=== PATIENT | male | born 1950 | race Caucasian/White ===

== ENCOUNTER 2018-06-09 11:51 | Observation (INO) ==
--- NOTE | 2018-06-09 12:15 | Emergency Department Note ---
Disposition Clinical Impression: Dyspnea on exertion, Exertional chest pain Disposition: Admitted As Inpatient Condition: Good Forms: ED Satisfaction Letter Time of Disposition: 15:00 General Adult HPI - General Chief complaint: ED Chest Pain Stated complaint: CP Time Seen by Provider: 06/09/18 12:04 Source: patient, family Mode of arrival: ambulatory Limitations: no limitations - History of Present Illness HPI Narrative: This is a 67-year-old male with a significant history of coronary disease, with multiple cardiac catheterization since 2010 and a cardiac bypass here in 2013 and repeat bypass at [facility] in 2015, comes to the emergency department reporting episodes of chest pain with shortness of breath that have occurred on a daily basis for the last 14 days. He develops chest pain if he has minor exertion with coincident shortness of breath. Pain Scale: 4 - Related Data Home Medications Medication Instructions Recorded Confirmed Albuterol Sulfate [Proair Hfa] 2 puff IH Q4-6H PRN 10/04/15 04/08/17 Aspirin [Adult Low Dose Aspirin EC] 162 mg PO QAM 10/04/15 04/08/17 Fenofibrate [Lofibra] 160 mg PO QPM 10/04/15 04/08/17 Gabapentin [Neurontin] 300 mg PO BID 10/04/15 04/08/17 Hyoscyamine Sulfate 0.125 mg PO TID PRN 10/04/15 04/08/17 Insulin LISPRO [HumaLOG] 6 units SQ TIDWM 10/04/15 04/08/17 Metformin HCl [Glucophage] 1,000 mg PO BID 10/04/15 04/08/17 Metoprolol Tartrate [Lopressor] 50 mg PO BID 10/04/15 04/08/17 Multivitamin/Iron/Folic Acid 1 tab PO QAM 10/04/15 04/08/17 [Centrum Complete Multivit Tab] Nitroglycerin 0.4 mg SL AD PRN 10/04/15 04/08/17 Ondansetron HCl [Zofran] 8 mg PO BID PRN 10/04/15 04/08/17 Simvastatin [Zocor] 40 mg PO QPM 10/04/15 04/08/17 Vitamin B Complex 1 cap PO QAM 10/04/15 04/08/17 Dulaglutide [Trulicity] 1.5 mg SQ QWEEK 04/08/17 04/08/17 Insulin Glargine,Hum.rec.anlog 55 units SQ HS 04/08/17 04/08/17 [Sherine Velasquez] Allergies Allergy/AdvReac Type Severity Reaction Status Date / Time No Known Allergies Allergy Verified 04/15/15 16:50 All systems ED: reviewed and negative except as stated. Cardiovascular: Reports: chest pain, dyspnea on exertion Respiratory: Reports: dyspnea Past Medical History - Past Medical History Medical history: Reports: asthma, coronary artery disease, CVA, diabetes, hyperlipidemia, hypertension Surgical history: Reports: angioplasty/stent, coronary bypass (CABG) Psychiatric history: Reports: no psych history - Social History Smoking Status: Never smoker Smokeless Tobacco Status: No Alcohol use: Reports: none Drug use: Reports: none Physical Exam - General Limitations: no limitations General appearance: alert, in no apparent distress - Head Head exam: atraumatic, normocephalic, normal inspection - Eye Eye exam: Present: normal appearance, PERRL, EOMI - Chest Chest inspection: Present: normal inspection, symmetric chest wall rise - Respiratory Respiratory exam: Present: normal lung sounds bilaterally. Absent: respiratory distress, wheezes - Cardiovascular Cardiovascular exam: Present: regular rate, normal rhythm, normal heart sounds - Abdominal Exam Abdominal exam: Present: soft, Non-Tender. Absent: tenderness, distention, guarding, rebound, rigidity - Extremities Exam Extremities exam: Present: normal inspection, full ROM. Absent: tenderness, pedal edema - Neurological Exam Neurological exam: Present: alert, oriented X3 - Psychiatric Psychiatric exam: Present: normal affect, normal mood - Skin Skin exam: Present: warm, dry, intact, normal color Course Course Narrative: This is a 67-year-old male with symptoms concerning for angina or unstable angina. Vital Signs Temperature 97.6 F 06/09/18 11:59 Pulse Rate 71 06/09/18 11:59 Respiratory Rate 16 06/09/18 11:59 Blood Pressure 168/78 06/09/18 11:59 O2 Sat by Pulse Oximetry 99 06/09/18 11:59 Temperature 97.6 F 06/09/18 11:59 Pulse Rate 71 06/09/18 11:59 Respiratory Rate 16 06/09/18 14:06 Blood Pressure 168/78 06/09/18 11:59 O2 Sat by Pulse Oximetry 99 06/09/18 14:06 Oxygen Delivery Oxygen Delivery Room Air Medical Decision Making - MDM Narrative Medical decision making narrative: This is a 67-year-old male with symptoms concerning for unstable angina. I discussed his case with the on-call hospitalist, who accepted him for admission - Lab Data Lab results reviewed: Yes I reviewed the patient's lab results. Lab results narrative: CBC was unremarkable BMP was unremarkable Troponin was low Result diagrams: 06/09/18 12:40 06/09/18 12:40 Lab Results 06/09/18 06/09/18 Range/Units 12:40 12:40 WBC 7.9 (4.3-11.1) K/mcL RBC 4.87 (4.19-5.50) M/mcL Hgb 13.4 (12.9-16.9) g/dL Hct 42.4 (37.5-50.1) % MCV 87.1 (83.0-100.0) fL MCH 27.5 L (28.0-33.3) pg MCHC 31.6 (31.6-35.5) g/dL RDW 13.2 (11.5-14.5) % Plt Count 293 (140-400) K/mcL MPV 10.5 (9.4-12.4) fL Immature Gran % 0.3 (0-4) % Seg Neutrophils % 61.1 % Lymphocytes % 25.2 % Monocytes % 8.8 % Eosinophils % 3.8 % Basophils % 0.8 % Neutrophils # 4.8 (1.6-8.9) K/mcL Lymphocytes # 2.0 (0.6-4.6) K/mcL Monocytes # 0.7 (0.0-1.3) K/mcL Eosinophils # 0.3 (0.0-0.6) K/mcL Basophils # 0.1 (0.0-0.2) K/mcL Sodium 137 (136-145) mEq/L Potassium 4.6 (3.5-5.1) mEq/L Chloride 106 (98-107) mEq/L Carbon Dioxide 24 (23-29) mEq/L BUN 21 (8-23) mg/dL Creatinine 0.93 (0.70-1.30) mg/dL Est GFR ( Amer) > 60 (> 60) Est GFR (Non-Af Amer) > 60 (> 60) BUN/Creatinine Ratio 23 (6-26) Glucose 169 H (70-105) mg/dL Calculated Osmolality 291 (280-300) Calcium 10.0 (8.6-10.3) mg/dL Troponin I < 0.03 (< 0.04) ng/mL - Radiology Data Radiology results reviewed: Yes I reviewed the patient's radiology results. CXR was unremarkable - EKG Data EKG #1 EKG attestation: Yes I reviewed and interpreted this EKG. EKG results narrative: ECG shows sinus rhythm, 62 bpm, normal intervals, normal axis, normal ST and T waves Critical Care Time Critical Care Time: No
[2018-06-09 12:59] LABS: Basophils # 0.1 K/mcL (0.0-0.2); Basophils % 0.8 %; Eosinophils # 0.3 K/mcL (0.0-0.6); Eosinophils % 3.8 %; Hematocrit 42.4 % (37.5-50.1); Hemoglobin 13.4 g/dL (12.9-16.9); Immature Granulocytes % 0.3 % (0-4); Lymphocytes % 25.2 %; Mean Corpuscular HGB Conc 31.6 g/dL (31.6-35.5); Mean Corpuscular Hemoglobin 27.5 pg (28.0-33.3); Mean Corpuscular Volume 87.1 fL (83.0-100.0); Mean Platelet Volume 10.5 fL (9.4-12.4); Monocytes # 0.7 K/mcL (0.0-1.3); Monocytes % 8.8 %; Neutrophils # 4.8 K/mcL (1.6-8.9); Platelet Count 293 K/mcL (140-400); Red Blood Count 4.87 M/mcL (4.19-5.50); Red Cell Distribution Width 13.2 % (11.5-14.5); Segmented Neutrophils % 61.1 %
[2018-06-09 13:18] LABS: BUN/Creatinine Ratio 23 (6-26); Blood Urea Nitrogen 21 mg/dL (8-23); Carbon Dioxide 24 mEq/L (23-29); Chloride 106 mEq/L (98-107); Glucose 169 mg/dL (70-105); Osmolality,Calculated 291 (280-300); Potassium 4.6 mEq/L (3.5-5.1); Sodium 137 mEq/L (136-145); Troponin I < 0.03 ng/mL (< 0.04); eGFR For Non-African Americans > 60 (> 60)
[2018-06-09] MEDS ORDERED: Ipratropium/Albuterol Neb 3 ML IH ONE (13:27)
[2018-06-09] MEDS ORDERED: Hyoscyamine SL 0.125 MG TAB.SUBL PO PRN (16:42)
[2018-06-09] MEDS ORDERED: Nitroglycerin 0.4 MG TAB.SUBL SL PRN ×2 (16:42→17:04)
[2018-06-09] MEDS ORDERED: Dextrose Gel 15 GM/37.5 ML TUBE PO PRN ×2 (16:52)
[2018-06-09] MEDS ORDERED: *HR* Dextrose 50 % in Water (Syg) 50 ML SYRINGE IVP PRN (16:52)
[2018-06-09] MEDS ORDERED: D5% in Water 1,000 ML IVC PRN (16:52)
--- NOTE | 2018-06-09 17:00 | Internal Med History&Physical ---
Date of Encounter: 06/09/18 Time of Encounter: 16:54 Internal Medicine - H&P: HPI Chief complaint: chest pain Admitted From: Home Plans for Post Hospital Care: Home History of present illness: Mr. Alexander is a 67 year old male with a significant history of coronary disease, with multiple cardiac catheterization since 2010 and a cardiac bypass here in 2013 and repeat bypass at [facility] in 2016, hypertension, hy perlipidemia and DM, presented to the emergency department reporting episodes of chest pain with shortness of breath for 2 weeks. Chest pains, located to the left lower chest pressure-like 6 out of 10 no radiation. Associated was shortness of breasts, he denies diaphoresis no dizziness no palpation. 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 Allen. He denies fever or chills no productive cough. He denies abdominal pain nausea vomiting diarrhea. In the emergency room and he has negative troponin, EKG has no ST elevation or depression. We will admitted for chest pain workup, check troponin echocardiogram and a stress test Past Med Surg Social Fam HX - Past Medical History Medical history: asthma, coronary artery disease, CVA, diabetes, hyperlipidemia, hypertension Additional medical history: left side weakness Psychiatric history: no psych history - Past Surgical History Surgical History: angioplasty/stent, coronary bypass (CABG) Additional surgical history: CABGx2 - Social History Smoking Status: Never smoker Smokeless Tobacco Status: No Alcohol use: none Drug use: none - Family History Brother Adopted: No Living Status: Still Living Hx Family Cardiac Disorders: Yes (HEART DISEASE) Hx Family Respiratory Disorders: Yes (ASTHMA) Hx Family Cancer: No Hx Family GI Disorders: No Hx Family Endocrine Disorder: No (DIABETES) Hx Family Neuromuscular Disorders: No Hx Family Neurologic Disorders: No Hx Family HEENT Disorders: No Hx Family Autoimmune Disorders: No Sister Adopted: No Living Status: Still Living Hx Family Cardiac Disorders: No Hx Family Respiratory Disorders: No Hx Family Cancer: No Hx Family Endocrine Disorder: Yes (DIABETES) Hx Family Neuromuscular Disorders: No Hx Family Neurologic Disorders: No Hx Family HEENT Disorders: No Hx Family Autoimmune Disorders: No Mother Hx Family Cardiac Disorders: Yes (CARDIAC DISEASE.) Internal Medicine - H&P: Meds Albuterol Sulfate [Proair Hfa] 2 puff IH Q4-6H PRN 10/04/15 [History] Aspirin [Adult Low Dose Aspirin EC] 162 mg PO QAM 10/04/15 [History] Fenofibrate [Lofibra] 160 mg PO QPM 10/04/15 [History] Gabapentin [Neurontin] 300 mg PO BID 10/04/15 [History] Hyoscyamine Sulfate 0.125 mg PO TID PRN 10/04/15 [History] Insulin LISPRO [HumaLOG] 0 units SQ TIDWM 10/04/15 [History] Metformin HCl [Glucophage] 1,000 mg PO BID 10/04/15 [History] Metoprolol Tartrate [Lopressor] 50 mg PO BID 10/04/15 [History] Multivitamin/Iron/Folic Acid [Centrum Complete Multivit Tab] 1 tab PO QAM 10/04/15 [History] Nitroglycerin 0.4 mg SL AD PRN 10/04/15 [History] Ondansetron HCl [Zofran] 8 mg PO BID PRN 10/04/15 [History] Simvastatin [Zocor] 40 mg PO QPM 10/04/15 [History] Vitamin B Complex 1 cap PO QAM 10/04/15 [History] Dulaglutide [Trulicity] 1.5 mg SQ FR 04/08/17 [History] Insulin Degludec [Tresiba Flextouch U-200] 60 unit SQ QAM 06/09/18 [History] Allergy/AdvReac Type Severity Reaction Status Date / Time No Known Allergies Allergy Verified 04/15/15 16:50 All Systems PM: A 10-system review of systems was performed and is negative for pertinent findings except as documented above in the HPI. - Constitutional Vitals: Temp Pulse Resp BP Pulse Ox 98 F 75 16 167/95 97 06/09/18 16:39 06/09/18 16:39 06/09/18 16:39 06/09/18 16:39 06/09/18 16:39 General appearance: Present: A&O X 3, pleasant Exam: CONSTITUTIONAL: Patient appears as an age appropriate male well developed, in no acute distress. EYES Clear sclerae, bilateral pupils are equal, reactive to light and accommoda tion. Extraocular movements are intact RESPIRATORY: No accessory muscle use, bilateral clear to auscultation, no wheezing, no crackles/rales. CARDIOVASCULAR: Regular heart rate, normal S1 and S2, no murmurs GASTROINTESTINAL: bowel sounds present, soft, no tenderness. No hepatosplenomegaly. No bilateral CVA tenderness MUSCULOSKELETAL: Joints in normal range of motion, no clubbing, no edema, no cya nosis. Bilateral peripheral pulses 2+ LYMPHATIC no lymphadenopathy in neck, groin and axilla bilaterally, no thyromegaly. NEUROLOGIC: CN II to XII are grossly intact, no focal neurological deficit. Deep tendon reflexes 2+ bilaterally. Normal light touch sensation to upper and lower extremity PSYCHIATRIC: Oriented x3, with good insight, mood is euthymic. No hallucinations or delusions. SKIN: Skin warm and dry, no rashes, no open wound. Internal Med - H&P Results - Labs CBC & Chem 7: 06/09/18 12:40 06/09/18 12:40 Labs: Short CBC 06/09/18 Range/Units 12:40 WBC 7.9 (4.3-11.1) K/mcL Hgb 13.4 (12.9-16.9) g/dL Hct 42.4 (37.5-50.1) % Plt Count 293 (140-400) K/mcL Neutrophils # 4.8 (1.6-8.9) K/mcL BMP 06/09/18 12:40 Sodium 137 Potassium 4.6 Chloride 106 Carbon Dioxide 24 BUN 21 Creatinine 0.93 Glucose 169 H Calcium 10.0 Cardiac Enzymes 06/09/18 Range/Units 12:40 Troponin I < 0.03 (< 0.04) ng/mL - Impressions ITS Impressions Chest X-Ray 06/09/18 12:12 IMPRESSION: No focal airspace opacity or evidence of pleural effusion. D/ / Osmar Zeng / Osmar Zeng Interpreting Provider: Osmar Zeng - Assessment and plan (1) Chest pain Current Visit: No Status: Resolved Assessment and plan: Exertional, in setting of CAD, we will check troponin echocardiogram to stress test Qualifiers: Chest pain type: chest pain due to myocardial ischemia Qualified Code(s): I20.8 - Other forms of angina pectoris (2) CAD (coronary artery disease) Current Visit: Yes Status: Chronic Assessment and plan: Patient is is stated post of CABG 2 continue aspirin and statins Qualifiers: Coronary Disease-Associated Artery/Lesion type: bypass graft [place] vs. 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 Diabetes mellitus complication status: with neurologic complications Diabetes mellitus complication detail: with unspecified neuropathy Qualified Code(s): E11.40 - Type 2 diabetes mellitus with diabetic neuropathy, unspecified; Z79.4 - 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
[2018-06-09] MEDS ORDERED: Fenofibrate 54 MG TABLET PO SCH (18:00)
[2018-06-09] MEDS: Insulin LISPRO 300 UNITS/3 ML VIAL SQ SCH (18:48)
[2018-06-09] MEDS: Gabapentin 300 MG CAPSULE PO SCH (20:42)
[2018-06-09] MEDS ORDERED: Insulin LISPRO 300 UNITS/3 ML VIAL SQ SCH (21:00)
[2018-06-10 00:49] LABS: Basophils # 0.1 K/mcL (0.0-0.2); Basophils % 0.8 %; Eosinophils # 0.3 K/mcL (0.0-0.6); Eosinophils % 4.2 %; Hematocrit 41.1 % (37.5-50.1); Hemoglobin 13.4 g/dL (12.9-16.9); Immature Granulocytes % 0.4 % (0-4); Lymphocytes # 2.3 K/mcL (0.6-4.6); Lymphocytes % 31.9 %; Mean Corpuscular HGB Conc 32.6 g/dL (31.6-35.5); Mean Corpuscular Hemoglobin 28.2 pg (28.0-33.3); Mean Corpuscular Volume 86.3 fL (83.0-100.0); Mean Platelet Volume 10.7 fL (9.4-12.4); Monocytes # 0.6 K/mcL (0.0-1.3); Monocytes % 8.6 %; Platelet Count 279 K/mcL (140-400); Red Blood Count 4.76 M/mcL (4.19-5.50); Red Cell Distribution Width 13.2 % (11.5-14.5); Segmented Neutrophils % 54.1 %
[2018-06-10 00:57] LABS: INR 1.1; Prothrombin Time 11.9 Seconds (9.4-12.1)
[2018-06-10 01:10] LABS: Alanine Aminotransferase 36 Units/L (7-52); Albumin 4.2 g/dL (3.5-5.7); Albumin/Globulin Ratio 1.7 (1.1-2.2); Alkaline Phosphatase 33 Units/L (34-104); Aspartate Amino Transferase 26 Units/L (13-39); BUN/Creatinine Ratio 19 (6-26); Bilirubin,Total 0.4 mg/dL (0.3-1.0); Blood Urea Nitrogen 19 mg/dL (8-23); Calcium 9.5 mg/dL (8.6-10.3); Carbon Dioxide 24 mEq/L (23-29); Chloride 106 mEq/L (98-107); Globulin 2.5 g/dL (2.4-3.5); Glucose 161 mg/dL (70-105); Magnesium 1.7 mg/dL (1.6-2.6); Osmolality,Calculated 290 (280-300); Sodium 137 mEq/L (136-145); Total Protein 6.7 g/dL (6.4-8.9); eGFR For Non-African Americans > 60 (> 60)
[2018-06-10] MEDS ORDERED: Regadenoson 0.4 MG/5 ML SYRINGE IVP ONE (06:11)
--- NOTE | 2018-06-10 06:22 | Electrocardiograph Report ---
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
[2018-06-10] MEDS ORDERED: Perflutren Lipid Microsphere 1.3 ML in 0.9 % Sodium Chloride 8.7 ML IVP ONE (08:33)
[2018-06-10] MEDS ORDERED: Aspirin Enteric Coated 81 MG Tablet PO SCH (09:00)
[2018-06-10] MEDS ORDERED: INSULIN DEGLUDEC 60 UNIT SQ SCH (09:00)
[2018-06-10] MEDS ORDERED: Aspirin 81 MG TAB.CHEW PO SCH (09:00)
[2018-06-10] MEDS: Insulin LISPRO 300 UNITS/3 ML VIAL SQ SCH ×4 (09:23→11:27)
[2018-06-10] MEDS: Gabapentin 300 MG CAPSULE PO SCH (09:52)
[2018-06-10] MEDS ORDERED: Ondansetron 4 MG/2 ML VIAL IVP PRN (10:02)
[2018-06-10] MEDS ORDERED: Ondansetron 4 MG/2 ML VIAL IVP SCH (12:00)
--- NOTE | 2018-06-10 13:02 | Cardiology Consult Note ---
<Vijaya Tolliver - Last Filed: 06/10/18 14:33> Date of Encounter: 06/10/18 Time of Encounter: 12:55 Assessment and Plan (1) Chest pain Status: Chronic - Negative troponin x 3 - EKG shows 0.5mm ST elevation in II, III, aVF - pt denies further CP at present - Pt had normal LHC 03/2017 which showed 3/3 patent bypass grafts - stress test shows gated EF 67% and is negative or ischemia or infarct - echo shows LVEF 55-60% with normal LV size and function without significant valvular disease - pt already on baby ASA, 50mg BID metoprolol, 40mg Simvastatin, SL NG - r ecommend continuation of these therapies - Recommend adding 15mg Imdur to his current regimen for symptomatic relief and better HTN control - No further inpatient recommendations - followup outpt with Dr Marisol Bey Qualifiers: Chest pain type: chest pain due to myocardial ischemia Qualified Code(s): I20.8 - Other forms of angina pectoris Discussion w patient/family: The assessment and plan as outlined above was discussed with the patient and/or family members who expressed understanding and agreement. All questions were answered. Thank you for involving us in the care of your patient. Please call with any questions. History of Present Illness Consult date: 06/10/18 Requesting physician: Purvi Nicholas Consult reason: Cp, Pt of Dr Elsa Bey Chief complaint: CP History of present illness: Mr. Alexander is a 67 year old male with PMHx CAD, HTN, CABG ins 2013 & 2016, HLPD that presented to ED with 2 weeks of CP and SOB. Pt underwent echo on 06/10/18 which showed LVEF 55-60%, normal LV size & function, and no significant valvular disease. Pt also underwent stress test 06/10/18 which showed gated EF 67% and was negative for ischemia or infarct. Pt and family requested cardiac consultation because pt has previously had negative stress and echo and then had to have LHC. According to records, pt last underwent LHC in 03/2017 and was found to have 3/3 patent bypass grafts at that time. Pt describes his chest pain as left lateral in position, without radiation, described as sometimes sharp, sometimes pressure, lasts for a variable amount of time but could be as long as 20 minutes, nothing makes worse, NG makes better, happens during periods of rest/activity, seems to happen randomly. Is 5/10 in severity. Pt denies associated symptoms of diaphoresis, nausea, vomiting, syncope. Pt endorses some right hand numbness/tingling and lightheadedness/dizziness that happens occasionally but not always. Pt is reluctant to take NG because it gives him a headache and reports taking it 2-3x over the last 2 weeks. Pt already on 2 baby ASA, 50mg BID metoprolol, and 40mg Simvastatin with NG prn. Past Med Surg Social Fam HX - Past Medical History Medical history: asthma, coronary artery disease, CVA, diabetes, hyperlipidemia, hypertension Additional medical history: left side weakness Psychiatric history: no psych history - Past Surgical History Surgical History: angioplasty/stent, coronary bypass (CABG) Additional surgical history: CABGx2 - Social History Smoking Status: Never smoker Smokeless Tobacco Status: No Alcohol use: none Drug use: none - Family History Brother Adopted: No Living Status: Still Living Hx Family Cardiac Disorders: Yes (HEART DISEASE) Hx Family Respiratory Disorders: Yes (ASTHMA) Hx Family Cancer: No Hx Family GI Disorders: No Hx Family Endocrine Disorder: No (DIABETES) Hx Family Neuromuscular Disorders: No Hx Family Neurologic Disorders: No Hx Family HEENT Disorders: No Hx Family Autoimmune Disorders: No Mother Hx Family Cardiac Disorders: Yes (CARDIAC DISEASE.) Sister Adopted: No Living Status: Still Living Hx Family Cardiac Disorders: No Hx Family Respiratory Disorders: No Hx Family Cancer: No Hx Family Endocrine Disorder: Yes (DIABETES) Hx Family Neuromuscular Disorders: No Hx Family Neurologic Disorders: No Hx Family HEENT Disorders: No Hx Family Autoimmune Disorders: No Medications and Allergies RX: Albuterol Sulfate [Proair Hfa] 2 puff IH Q4-6H PRN 10/04/15 [History] RX: Aspirin [Adult Low Dose Aspirin EC] 162 mg PO QAM 10/04/15 [History] RX: Fenofibrate [Lofibra] 160 mg PO QPM 10/04/15 [History] RX: Gabapentin [Neurontin] 300 mg PO BID 10/04/15 [History] RX: Hyoscyamine Sulfate 0.125 mg PO TID PRN 10/04/15 [History] RX: Insulin LISPRO [HumaLOG] 0 units SQ TIDWM 10/04/15 [History] RX: Metformin HCl [Glucophage] 1,000 mg PO BID 10/04/15 [History] RX: Metoprolol Tartrate [Lopressor] 50 mg PO BID 10/04/15 [History] RX: Multivitamin/Iron/Folic Acid [Centrum Complete Multivit Tab] 1 tab PO QAM 10/04/15 [History] RX: Nitroglycerin 0.4 mg SL AD PRN 10/04/15 [History] RX: Ondansetron HCl [Zofran] 8 mg PO BID PRN 10/04/15 [History] RX: Simvastatin [Zocor] 40 mg PO QPM 10/04/15 [History] RX: Vitamin B Complex 1 cap PO QAM 10/04/15 [History] RX: Dulaglutide [Trulicity] 1.5 mg SQ FR 04/08/17 [History] RX: Insulin Degludec [Tresiba Flextouch U-200] 60 unit SQ QAM 06/09/18 [History] RX: Isosorbide MONOnitrate (24 HR) [Imdur] 15 mg PO DAILY 15 Days #15 tab.er.24h 06/10/18 [Rx] Allergy/AdvReac Type Severity Reaction Status Date / Time No Known Allergies Allergy Verified 04/15/15 16:50 All Systems Review: The remainder of the systems were reviewed and are negative - Constitutional Constitutional: no chills, no fever(s) - Cardiovascular Cardiovascular: chest pain at rest, chest pain with exertion, lightheadedness, no diaphoresis, no dyspnea at rest, no dyspnea on exertion, no radiating jaw, neck or arm pain, no leg edema, no syncope - Respiratory Respiratory: cough, dyspnea, no hemoptysis, no wheezing - Gastrointestinal Gastrointestinal: diarrhea, no abdominal pain, no constipation, no melena, no nausea - Genitourinary Genitourinary: no dysuria, no hematuria - Neurological Neurological: dizziness, numbness, tingling, no syncope Physical Examination Vital Signs, Last 4 Hours Temp Pulse Resp BP Pulse Ox 06/10/18 11:16 97.4 F L 58 18 106/47 97 06/10/18 10:02 97.6 F 60 16 187/82 97 General: Conversant, No Apparent Distress HEENT: Atraumatic, Normocephaly, Mucus Membranes Moist Neck: No JVD, Normal carotid pulses Cardiac: Reg Rate and Rhythm, Normal S1 and S2, No Murmur Lungs: Normal Breath Sounds, No Wheeze, Rales, Rhonchi Neuro: Alert and responsive, No focal deficits noted Abdomen: Soft, Non-Tender Skin: No rashes noted on visualized skin Musculoskeletal: No Chest Wall Tenderness Extremities: No Clubbing, No Cyanosis, No Edema, Normal Pulses Results 06/10/18 00:34 06/10/18 00:34 Lab Results 06/09/18 06/09/18 06/09/18 12:40 12:40 19:06 WBC 7.9 Hgb 13.4 Hct 42.4 Plt Count 293 INR Sodium 137 Potassium 4.6 Chloride 106 Carbon Dioxide 24 BUN 21 Creatinine 0.93 Glucose 169 H Calcium 10.0 Magnesium Total Bilirubin AST ALT Alkaline Phosphatase Troponin I < 0.03 < 0.03 06/10/18 06/10/18 06/10/18 00:34 00:34 00:34 WBC 7.3 Hgb 13.4 Hct 41.1 Plt Count 279 INR 1.1 Sodium Potassium Chloride Carbon Dioxide BUN Creatinine Glucose Calcium Magnesium Total Bilirubin AST ALT Alkaline Phosphatase Troponin I < 0.03 06/10/18 00:34 WBC Hgb Hct Plt Count INR Sodium 137 Potassium 4.0 Chloride 106 Carbon Dioxide 24 BUN 19 Creatinine 0.99 Glucose 161 H Calcium 9.5 Magnesium 1.7 Total Bilirubin 0.4 AST 26 ALT 36 Alkaline Phosphatase 33 L Troponin I - Imaging and Cardiology Stress Test: report reviewed Echo: report reviewed Consult Discharge Plan - Plan Instructions: Chest Pain (DC), Acute Kidney Injury (DC), Dyspnea (GEN), Hypomagnesemia (DC) Referrals: Bettie Renae CNP [Partnered Physician] - 06/17/18 2:00 pm Prescriptions: RX: Isosorbide MONOnitrate (24 HR) [Imdur] 15 mg PO DAILY 15 Days #15 tab.er.24h <Noemy Garcia - Last Filed: 06/10/18 18:57> Date of Encounter: 06/10/18 - Attending Attestation I discussed the plan of care with the Resident Physician. I agree with the treatment plan as described. Exam was not performed. Mr. Alexander presented with chest pain. Cardiology consulted at patient request. Troponins negative. No acute ECG findings. Stress testing negative for ischemia or infarct. [facility] 04/15 3/ patent bypass grafts. Attempted to discuss findings with patient in the afternoon after stress test was completed. Patient and angry, argumentative because he did not receive a meal. He told me "I won't pay your bill when I get it" and proceeded to tell me to "get out and not come back". Exam therefore was not performed. We started low dose Imdur on this patient, 15mg daily. Blood pressures markedly elevated on admission. Recommend continuing antiplatelet agent, statin, BB. He can follow with his primary [place] consultant as outpatient. Assessment and Plan Discussion w patient/family: The assessment and plan as outlined above was discussed with the patient and/or family members who expressed understanding and agreement. All questions were answered. Thank you for involving us in the care of your patient. Please call with any questions. History of Present Illness History of present illness: Mr. Alexander is a 67 year old male All Systems Review: The remainder of the systems were reviewed and are negative Physical Examination Vital Signs, Last 4 Hours Temp Pulse Resp BP Pulse Ox 06/10/18 15:33 97.9 F 68 16 181/80 98 Results 06/10/18 00:34 06/10/18 00:34 Lab Results 06/09/18 06/10/18 06/10/18 19:06 00:34 00:34 WBC 7.3 Hgb 13.4 Hct 41.1 Plt Count 279 INR Sodium Potassium Chloride Carbon Dioxide BUN Creatinine Glucose Calcium Magnesium Total Bilirubin AST ALT Alkaline Phosphatase Troponin I < 0.03 < 0.03 06/10/18 06/10/18 00:34 00:34 WBC Hgb Hct Plt Count INR 1.1 Sodium 137 Potassium 4.0 Chloride 106 Carbon Dioxide 24 BUN 19 Creatinine 0.99 Glucose 161 H Calcium 9.5 Magnesium 1.7 Total Bilirubin 0.4 AST 26 ALT 36 Alkaline Phosphatase 33 L Troponin I
[2018-06-10] MEDS ORDERED: Isosorbide MONOnitrate (24 HR) 30 MG TAB.ER.24H PO SCH (14:45)
--- NOTE | 2018-06-10 15:15 | Discharge Summary ---
- NOTES TO OUTPATIENT PROVIDER Notes to Outpatient Provider: basic d/c f/u Orders not resulted at time of discharge: Pending orders 06/09/18 17:06 NM jordin perf SPECT multi [NM] Routine Date of Encounter: 06/10/18 Time of Encounter: 15:13 - Discharge Diagnosis (1) Chest pain Priority: Primary Status: Chronic Qualifiers: Chest pain type: chest pain due to myocardial ischemia Qualified Code(s): I20.8 - Other forms of angina pectoris (2) CAD (coronary artery disease) Priority: Secondary Status: Chronic Qualifiers: Coronary Disease-Associated Artery/Lesion type: bypass graft [place] vs. transplanted heart: [place] heart Associated angina: with unstable angina Qualified Code(s): I25.700 - Atherosclerosis of coronary artery bypass graft(s), unspecified, with unstable angina pectoris (3) Diabetes Priority: Secondary Status: Chronic Qualifiers: Diabetes mellitus type: type 2 Diabetes mellitus residential insulin use: with residential use Diabetes mellitus complication status: with neurologic complications Diabetes mellitus complication detail: with unspecified neuropathy Qualified Code(s): E11.40 - Type 2 diabetes mellitus with diabetic neuropathy, unspecified; Z79.4 - manager long term care (current) use of insulin (4) HTN (hypertension) Priority: Secondary Status: Chronic Qualifiers: Hypertension type: essential hypertension Qualified Code(s): I10 - Essential (primary) hypertension Hospital course: Mr. Alexander is a 67 year old male with history of significant CAD and multiple cardiac catheterizations since 2010 as well as bypass grafts in 2014 in 2016. He presents to [facility] with 6 out of 10 left lower chest pain/pressure with associated shortness of breath, palpitations and diaphoresis. EKG compared to prior was without any changes concerning for ischemia, troponins negative 3. Stress test completed this morning and found to be without ischemia. He is continued at 3/10 chest pressure in the same location with the same associated symptoms. Cardiology was consulted and recommend adding 50 mg Imdur to his daily regimen for symptom relief and better HTN control. No further inpatient recommendations at this time. He is have follow up outpatient with Dr. Marisol Bey. He has been instructed to continue aspirin, beta carlos, simvastatin. Additionally, he is instructed to return to the ED should his symptoms persist and/or worsen. Discharge discussed with: patient, nurse - Time Spent with Patient Total time spent providing and/or coordinating discharge services: Less than 30 minutes - Discharge Medications Prescriptions: Isosorbide MONOnitrate (24 HR) [Imdur] 15 mg PO DAILY 15 Days #15 tab.er.24h Home Medications: Albuterol Sulfate [Proair Hfa] 2 puff IH Q4-6H PRN 10/04/15 [History] Aspirin [Adult Low Dose Aspirin EC] 162 mg PO QAM 10/04/15 [History] Fenofibrate [Lofibra] 160 mg PO QPM 10/04/15 [History] Gabapentin [Neurontin] 300 mg PO BID 10/04/15 [History] Hyoscyamine Sulfate 0.125 mg PO TID PRN 10/04/15 [History] Insulin LISPRO [HumaLOG] 0 units SQ TIDWM 10/04/15 [History] Metformin HCl [Glucophage] 1,000 mg PO BID 10/04/15 [History] Metoprolol Tartrate [Lopressor] 50 mg PO BID 10/04/15 [History] Multivitamin/Iron/Folic Acid [Centrum Complete Multivit Tab] 1 tab PO QAM 10/04/15 [History] Nitroglycerin 0.4 mg SL AD PRN 10/04/15 [History] Ondansetron HCl [Zofran] 8 mg PO BID PRN 10/04/15 [History] Simvastatin [Zocor] 40 mg PO QPM 10/04/15 [History] Vitamin B Complex 1 cap PO QAM 10/04/15 [History] Dulaglutide [Trulicity] 1.5 mg SQ FR 04/08/17 [History] Insulin Degludec [Tresiba Flextouch U-200] 60 unit SQ QAM 06/09/18 [History] Isosorbide MONOnitrate (24 HR) [Imdur] 15 mg PO DAILY 15 Days #15 tab.er.24h 06/10/18 [Rx] Allergies/Adverse Reactions: Allergy/AdvReac Type Severity Reaction Status Date / Time No Known Allergies Allergy Verified 04/15/15 16:50 Date of admission: 06/09/18 15:06 Primary care physician: Anais Almonte Consults: 06/09/18 17:04 Consult to Cardiology [CONS] Routine Comment: Consulting Provider: Cardiology [place] Reason for Consult: chest pain, amenatnet is Dr wood's patent Call Completed: No Discharging clinician: Luc Catherine Anticipated date of discharge: 06/10/18 - Constitutional Vitals: Temp Pulse Resp BP Pulse Ox 97.4 F L 58 18 106/47 97 06/10/18 11:16 06/10/18 11:16 06/10/18 11:16 06/10/18 11:16 06/10/18 11:16 General appearance: Present: A&O X 3, pleasant Exam: CONSTITUTIONAL: Patient appears as an age appropriate male well developed, in no acute distress. EYES Clear sclerae, bilateral pupils are equal, reactive to light and accommodation. Extraocular movements are intact RESPIRATORY: No accessory muscle use, bilateral clear to auscultation, no wheezing, no crackles/rales. CARDIOVASCULAR: Regular heart rate, normal S1 and S2, no murmurs. rubs or gallops GASTROINTESTINAL: bowel sounds present, soft, no tenderness. No hepatosplenomegaly. No bilateral CVA tenderness MUSCULOSKELETAL: Joints in normal range of motion, no clubbing, no edema, no cyanosis. Bilateral peripheral pulses 2+ LYMPHATIC no lymphadenopathy in neck, groin and axilla bilaterally, no thyromegaly. NEUROLOGIC: CN II to XII are grossly intact, no focal neurological deficit. Deep tendon reflexes 2+ bilaterally. Normal light touch sensation to upper and lower extremity PSYCHIATRIC: Oriented x3, with good insight, mood is euthymic. No hallucinations or delusions. SKIN: Skin warm and dry, no rashes, no open wound. - Patient Status Disposition: Home, Self-Care Condition: Good Functional capacity at discharge: independent ambulation Overall status at discharge: patient is progressing back to baseline - Discharge Instructions Instructions: Chest Pain (DC) Follow Up With: Bettie Renae CNP [Partnered Physician] - 06/17/18 2:00 pm - Diet and Activity Activity: increase activity as tolerated, resume usual activities as tolerated Diet: diabetic diet, low fat, low cholesterol, low salt diet
[2018-06-10 15:34] VITALS: BP 181/80
--- NOTE | 2018-06-11 11:39 | Electrocardiograph Report ---
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
[2018-06-12] MEDS ORDERED: (Dulaglutide [Trulicity] 1.5 MG) SQ SCH (16:42)
== END 2018-06-10 16:05 | disposition home or self-care (01) ==
LOC: 3BNU 11:51 → EMEROOARM 11:51 → 3BNU 16:10
PROVIDERS: ADMIT Internal Medicine; ATTEND Internal Medicine

== ENCOUNTER 2019-02-24 15:34 | Observation (INO) ==
[2019-02-24] MEDS ORDERED: Aspirin 81 MG TAB.CHEW PO ONE (15:39)
[2019-02-24] MEDS ORDERED: Nitroglycerin 0.4 MG TAB.SUBL SL PRN (15:39)
--- NOTE | 2019-02-24 15:49 | Emergency Department Note ---
Disposition Clinical Impression: Chest pain Qualifiers: Chest pain type: unspecified Qualified Code(s): R07.9 - Chest pain, unspecified Disposition: Admitted As Inpatient Condition: Good Referrals: Marla Lopes DO [Primary Care Provider] - Time of Disposition: 17:11 Chest Pain HPI - General Stated Complaint: chest pain Time Seen by Provider: 02/24/19 15:38 Source: patient, family Mode of arrival: other Limitations: no limitations Vital Signs Reviewed: Yes Nursing Notes Reviewed: Yes - History of Present Illness HPI Narrative: 68-year-old male with a past medical history of CAD that was at his private investigator surveillance's office this afternoon, Dr. Marisol Bey, because he had been having chest pain for the last month which got worse yesterday. Patient describes his pain as left-sided with occasional radiation up into his proximal chest, associated symptoms include nausea, lightheadedness, blurry vision. Patient states he is on a long-acting nitroglycerin as well as when necessary nitroglycerin, last took his dose last night, reports no relief with this. While patient was in his private investigator surveillance's office they sent him down here for further testing and to be admitted. Patient states that his pain can come on when he is doing nothing, states that his pain came on while he was seated. Patient reports 2 prior open-heart surgeries. - Related Data Home Medications Medication Instructions Recorded Confirmed Albuterol Sulfate [Proair Hfa] 2 puff IH Q4-6H PRN 10/04/15 06/09/18 Aspirin [Adult Low Dose Aspirin EC] 162 mg PO QAM 10/04/15 06/09/18 Fenofibrate [Lofibra] 160 mg PO QPM 10/04/15 06/09/18 Gabapentin [Neurontin] 300 mg PO BID 10/04/15 06/09/18 Hyoscyamine Sulfate 0.125 mg PO TID PRN 10/04/15 06/09/18 Insulin LISPRO [HumaLOG] 0 units SQ TIDWM 10/04/15 06/09/18 Metformin HCl [Glucophage] 1,000 mg PO BID 10/04/15 06/09/18 Metoprolol Tartrate [Lopressor] 50 mg PO BID 10/04/15 06/09/18 Multivitamin/Iron/Folic Acid 1 tab PO QAM 10/04/15 06/09/18 [Centrum Complete Multivit Tab] Nitroglycerin 0.4 mg SL AD PRN 10/04/15 06/09/18 Ondansetron HCl [Zofran] 8 mg PO BID PRN 10/04/15 06/09/18 Simvastatin [Zocor] 40 mg PO QPM 10/04/15 06/09/18 Vitamin B Complex 1 cap PO QAM 10/04/15 06/09/18 Dulaglutide [Trulicity] 1.5 mg SQ FR 04/08/17 06/09/18 Insulin Degludec [Tresiba 60 unit SQ QAM 06/09/18 06/09/18 Flextouch U-200] Allergies Allergy/AdvReac Type Severity Reaction Status Date / Time No Known Allergies Allergy Verified 07/29/18 15:07 Review of Systems: In addition to that documented in the HPI above, the additional ROS was obtained: Constitutional: Denies fevers or chills Eyes: Reports blurry vision ENMT: Denies sore throat CV: Reports chest pain Resp: Reports SOB with CP GI: Denies vomiting Reports chronic diarrhea : Denies painful urination MSK: Denies recent trauma Skin: Denies new rashes Neuro: Denies new numbness or tingling or weakness Reports occasional num bness/tingling in hands/feet that is chronic in nature Chest Pain PMH - Past Medical History Medical history: Reports: diabetes, hyperlipidemia, hypertension, asthma, CVA, coronary artery disease Surgical history: Reports: coronary bypass (CABG), angioplasty/stent Psychiatric history: Reports: no psych history - Social History Smoking Status: Never smoker Alcohol use: Reports: none Drug use: Reports: none Physical Exam General: A&O x 3. No acute distress. Well developed, well nourished. Head: atraumatic, normocephalic. ENT: No conjunctival injection, no scleral icterus. PERRLA. EOMI. Oropharynx non- erythematous. mucous membranes moist. Neuro: No focal deficits, no speech deficit, no facial droop, mentating well. BUE/BLE Str 5/5. Pulm: Lungs CTAB A/P. No wheezes, rales, ronchi. Cardio: RRR no m/r/g. Chest not tender to palpation. Abd: Soft, non-distended. Normoactive bowel sounds. Non-tender to palpation. No guarding. Non rigid. Extremities: Radial pulses 2+ jessenia, dorsalis pedis/posterior tibialis 2+ jessenia. No LE edema. No cyanosis, clubbing. Skin: warm, dry, intact. No rashes. Psych: Appropriate mood and affect. Answers questions appropriately. Cooperative with exam. Course - Consultations Consultation #1: Spoke with Dr. Callejas who states that the pt should be started on nitro and heparin drips. If the nitro drip does not relieve his chest pain entirely, he would like repeat EKG to ensure there are no dynamic changes. He also states the pt should be NPO after midnight. Will place orders. Time: 17:09 Vital Signs Temperature 98 F 02/24/19 15:52 Pulse Rate 63 02/24/19 15:52 Respiratory Rate 16 02/24/19 15:52 Blood Pressure 144/77 02/24/19 15:52 O2 Sat by Pulse Oximetry 98 02/24/19 15:52 Temperature 98 F 02/24/19 15:52 Pulse Rate 64 02/24/19 15:59 Respiratory Rate 16 02/24/19 15:59 Blood Pressure 121/75 02/24/19 15:59 O2 Sat by Pulse Oximetry 98 02/24/19 15:59 Oxygen Delivery Oxygen Delivery Room Air Chest Pain - MDM Narrative Medical decision making narrative: 1605: 68M with Pmhx of two previous CABG that was at private investigator surveillance office this afternoon and they recommended he come here for workup and admission. Dr Marisol Bey reports wanting to cath him in the AM. Will obtain pre-op labs and consult Dr. Bey for further instructions, and admit to hospitalist. 1710: Pt continued to have 5/10 chest pain but denies needing anything for this. However, Dr. Callejas, [employer] Operator, who was consulted states that the pt should receive a nitro drip to relieve his chest pain to a zero. Pt was admitted to hospitalist, Dr. Sutherland, who agreed to accept the pt to his care. Pt remained stable while in the department. Results of the workup including any imaging and/or labwork was shared with the patient at bedside. Patient was given an opportunity to ask questions at bedside and all of their concerns were addressed. Patient verbalized understanding and agreement with plan of care. Pt remained stable while in the department. - Medical Records Medical records reviewed: Yes I reviewed the patient's medical records. - Lab Data Lab results reviewed: Yes I reviewed the patient's lab results. Result diagrams: 02/24/19 15:54 02/24/19 15:54 Lab Results 02/24/19 02/24/19 02/24/19 Range/Units 15:54 15:54 15:54 WBC 7.6 (4.3-11.1) K/mcL RBC 4.52 (4.19-5.50) M/mcL Hgb 12.9 (12.9-16.9) g/dL Hct 39.9 (37.5-50.1) % MCV 88.3 (83.0-100.0) fL MCH 28.5 (28.0-33.3) pg MCHC 32.3 (31.6-35.5) g/dL RDW 13.5 (11.5-14.5) % Plt Count 261 (140-400) K/mcL MPV 10.3 (9.4-12.4) fL Immature Gran % 0.3 (0-4) % Seg Neutrophils % 57.3 % Lymphocytes % 27.4 % Monocytes % 8.8 % Eosinophils % 5.1 % Basophils % 1.1 % Neutrophils # 4.3 (1.6-8.9) K/mcL Lymphocytes # 2.1 (0.6-4.6) K/mcL Monocytes # 0.7 (0.0-1.3) K/mcL Eosinophils # 0.4 (0.0-0.6) K/mcL Basophils # 0.1 (0.0-0.2) K/mcL PT 11.5 (9.4-12.1) Seconds INR 1.0 APTT 36.5 H (26.0-36.0) Seconds Sodium 141 (136-145) mEq/L Potassium 4.7 (3.5-5.1) mEq/L Chloride 107 (98-107) mEq/L Carbon Dioxide 24 (23-29) mEq/L BUN 20 (8-23) mg/dL Creatinine 1.19 (0.70-1.30) mg/dL Est GFR ( Amer) > 60 (> 60) Est GFR (Non-Af Amer) > 60 (> 60) BUN/Creatinine Ratio 17 (6-26) Glucose 140 H (70-105) mg/dL Calculated Osmolality 297 (280-300) Calcium 9.6 (8.6-10.3) mg/dL Troponin I < 0.03 (< 0.04) ng/mL Urine Color (Yellow) Urine Clarity (Clear) Urine pH (5.0-8.0) pH Units Ur Specific [place] (1.010-1.025) Urine Protein (Neg-Trace) mg/dL Urine Glucose (UA) (Normal) mg/dL Urine Ketones (Negative) mg/dL Urine Blood (Negative) Urine Nitrite (Negative) Urine Bilirubin (Negative) Urine Urobilinogen (Normal) mg/dL Ur Leukocyte Esterase (Negative) Urine Microscopic RBC (0-3) per hpf Urine Microscopic WBC (0-3) per hpf Ur Squamous Epith Cells (None-Few) per lpf Urine Bacteria (None-Few) per hpf Hyaline Casts (None-Few) per lpf Ur Culture Indicated? (NO) 02/24/19 Range/Units 16:17 WBC (4.3-11.1) K/mcL RBC (4.19-5.50) M/mcL Hgb (12.9-16.9) g/dL Hct (37.5-50.1) % MCV (83.0-100.0) fL MCH (28.0-33.3) pg MCHC (31.6-35.5) g/dL RDW (11.5-14.5) % Plt Count (140-400) K/mcL MPV (9.4-12.4) fL Immature Gran % (0-4) % Seg Neutrophils % % Lymphocytes % % Monocytes % % Eosinophils % % Basophils % % Neutrophils # (1.6-8.9) K/mcL Lymphocytes # (0.6-4.6) K/mcL Monocytes # (0.0-1.3) K/mcL Eosinophils # (0.0-0.6) K/mcL Basophils # (0.0-0.2) K/mcL PT (9.4-12.1) Seconds INR APTT (26.0-36.0) Seconds Sodium (136-145) mEq/L Potassium (3.5-5.1) mEq/L Chloride (98-107) mEq/L Carbon Dioxide (23-29) mEq/L BUN (8-23) mg/dL Creatinine (0.70-1.30) mg/dL Est GFR ( Amer) (> 60) Est GFR (Non-Af Amer) (> 60) BUN/Creatinine Ratio (6-26) Glucose (70-105) mg/dL Calculated Osmolality (280-300) Calcium (8.6-10.3) mg/dL Troponin I (< 0.04) ng/mL Urine Color Yellow (Yellow) Urine Clarity Clear (Clear) Urine pH 5.5 (5.0-8.0) pH Units Ur Specific [place] 1.021 (1.010-1.025) Urine Protein 100 H (Neg-Trace) mg/dL Urine Glucose (UA) Normal (Normal) mg/dL Urine Ketones Negative (Negative) mg/dL Urine Blood Negative (Negative) Urine Nitrite Negative (Negative) Urine Bilirubin Negative (Negative) Urine Urobilinogen Normal (Normal) mg/dL Ur Leukocyte Esterase Negative (Negative) Urine Microscopic RBC 0-3 (0-3) per hpf Urine Microscopic WBC 0-3 (0-3) per hpf Ur Squamous Epith Cells None Seen (None-Few) per lpf Urine Bacteria None Seen (None-Few) per hpf Hyaline Casts None Seen (None-Few) per lpf Ur Culture Indicated? NO (NO) - Radiology Data Radiology results reviewed: Yes I reviewed the patient's radiology results. Chest X-Ray 02/24/19 15:39 IMPRESSION: No acute process. D/ / 02/24/2019 15:53:49 Stevie Noel MD / [facility] Interpreting Provider: Stevie Noel MD - EKG Data EKG attestation: Yes I reviewed and interpreted this EKG. EKG results narrative: HR 69, rhythm sinus, axis normal. OH 204 and prolonged, QRS 106, QTc 415. <1mm ST elevation in II, III, aVF, V2. <1mm ST depression in aVR. Heart Score - Score History: Highly Suspicious EKG: Significant ST-Depression Age: Greater than 65 Risk Factors: Equal/Greater than 3 risk factor or history of atherosclerotic disease Troponin: Less than normal limit HEART Score Total: 8
[2019-02-24 16:07] LABS: Basophils # 0.1 K/mcL (0.0-0.2); Basophils % 1.1 %; Eosinophils # 0.4 K/mcL (0.0-0.6); Eosinophils % 5.1 %; Hematocrit 39.9 % (37.5-50.1); Hemoglobin 12.9 g/dL (12.9-16.9); Immature Granulocytes % 0.3 % (0-4); Lymphocytes # 2.1 K/mcL (0.6-4.6); Lymphocytes % 27.4 %; Mean Corpuscular HGB Conc 32.3 g/dL (31.6-35.5); Mean Corpuscular Hemoglobin 28.5 pg (28.0-33.3); Mean Corpuscular Volume 88.3 fL (83.0-100.0); Mean Platelet Volume 10.3 fL (9.4-12.4); Monocytes # 0.7 K/mcL (0.0-1.3); Monocytes % 8.8 %; Neutrophils # 4.3 K/mcL (1.6-8.9); Platelet Count 261 K/mcL (140-400); Red Blood Count 4.52 M/mcL (4.19-5.50); Red Cell Distribution Width 13.5 % (11.5-14.5); Segmented Neutrophils % 57.3 %; White Blood Count 7.6 K/mcL (4.3-11.1)
[2019-02-24 16:15] LABS: Prothrombin Time 11.5 Seconds (9.4-12.1)
[2019-02-24 16:17] LABS: Activated Partial Thrombo Time 36.5 Seconds (26.0-36.0)
[2019-02-24 16:26] LABS: Bilirubin,Urine Negative (Negative); Blood,Urine Negative (Negative); Clarity,Urine Clear (Clear); Color,Urine Yellow (Yellow); Glucose,Urine (UA) Normal (Normal); Ketones,Urine Negative (Negative); Leukocyte Esterase,Urine Negative (Negative); Nitrite,Urine Negative (Negative); PH,Urine 5.5 pH Units (5.0-8.0); Protein,Urine 100 mg/dL (Neg-Trace); Specific Gravity,Urine 1.021 (1.010-1.025); Urobilinogen,Urine Normal (Normal)
[2019-02-24 16:27] LABS: BUN/Creatinine Ratio 17 (6-26); Blood Urea Nitrogen 20 mg/dL (8-23); Calcium 9.6 mg/dL (8.6-10.3); Carbon Dioxide 24 mEq/L (23-29); Chloride 107 mEq/L (98-107); Glucose 140 mg/dL (70-105); Osmolality,Calculated 297 (280-300); Potassium 4.7 mEq/L (3.5-5.1); Sodium 141 mEq/L (136-145); eGFR For African Americans > 60 (> 60); eGFR For Non-African Americans > 60 (> 60)
[2019-02-24 16:28] LABS: Troponin I < 0.03 ng/mL (< 0.04)
[2019-02-24 16:28] LABS: Bacteria,Urine None Seen per hpf (None-Few); Hyaline Casts,Urine None Seen per lpf (None-Few); RBC,Urine 0-3 per hpf (0-3); Squamous Epithelial Cell,Urine None Seen per lpf (None-Few); WBC,Urine 0-3 per hpf (0-3)
--- NOTE | 2019-02-24 16:35 | Emergency Department Note ---
Disposition Clinical Impression: Chest pain Disposition: Admitted As Inpatient Condition: Good Referrals: Marla Lopes DO [Primary Care Provider] - Time of Disposition: 16:35 Chest Pain HPI - General Chief Complaint: ED Chest Pain Stated Complaint: chest pain Time Seen by Provider: 02/24/19 15:38 Source: patient, family Mode of arrival: other Limitations: no limitations - History of Present Illness Severity scale (1-10): 0 - Related Data Home Medications Medication Instructions Recorded Confirmed Albuterol Sulfate [Proair Hfa] 2 puff IH Q4-6H PRN 10/04/15 06/09/18 Aspirin [Adult Low Dose Aspirin EC] 162 mg PO QAM 10/04/15 06/09/18 Fenofibrate [Lofibra] 160 mg PO QPM 10/04/15 06/09/18 Gabapentin [Neurontin] 300 mg PO BID 10/04/15 06/09/18 Hyoscyamine Sulfate 0.125 mg PO TID PRN 10/04/15 06/09/18 Insulin LISPRO [HumaLOG] 0 units SQ TIDWM 10/04/15 06/09/18 Metformin HCl [Glucophage] 1,000 mg PO BID 10/04/15 06/09/18 Metoprolol Tartrate [Lopressor] 50 mg PO BID 10/04/15 06/09/18 Multivitamin/Iron/Folic Acid 1 tab PO QAM 10/04/15 06/09/18 [Centrum Complete Multivit Tab] Nitroglycerin 0.4 mg SL AD PRN 10/04/15 06/09/18 Ondansetron HCl [Zofran] 8 mg PO BID PRN 10/04/15 06/09/18 Simvastatin [Zocor] 40 mg PO QPM 10/04/15 06/09/18 Vitamin B Complex 1 cap PO QAM 10/04/15 06/09/18 Dulaglutide [Trulicity] 1.5 mg SQ FR 04/08/17 06/09/18 Insulin Degludec [Tresiba 60 unit SQ QAM 06/09/18 06/09/18 Flextouch U-200] Allergies Allergy/AdvReac Type Severity Reaction Status Date / Time No Known Allergies Allergy Verified 07/29/18 15:07 Chest Pain PMH - Past Medical History Medical history: Reports: diabetes, hyperlipidemia, hypertension, asthma, CVA, coronary artery disease Surgical history: Reports: coronary bypass (CABG), angioplasty/stent Psychiatric history: Reports: no psych history - Social History Smoking Status: Never smoker Alcohol use: Reports: none Drug use: Reports: none Physical Exam - General Limitations: no limitations General appearance: alert, in no apparent distress Course Vital Signs Temperature 98 F 02/24/19 15:52 Pulse Rate 63 02/24/19 15:52 Respiratory Rate 16 02/24/19 15:52 Blood Pressure 144/77 02/24/19 15:52 O2 Sat by Pulse Oximetry 98 02/24/19 15:52 Temperature 98 F 02/24/19 15:52 Pulse Rate 64 02/24/19 15:59 Respiratory Rate 16 02/24/19 15:59 Blood Pressure 121/75 02/24/19 15:59 O2 Sat by Pulse Oximetry 98 02/24/19 15:59 Oxygen Delivery Oxygen Delivery Room Air Chest Pain - Lab Data Result diagrams: 02/24/19 15:54 02/24/19 15:54 Lab Results 02/24/19 02/24/19 02/24/19 Range/Units 15:54 15:54 15:54 WBC 7.6 (4.3-11.1) K/mcL RBC 4.52 (4.19-5.50) M/mcL Hgb 12.9 (12.9-16.9) g/dL Hct 39.9 (37.5-50.1) % MCV 88.3 (83.0-100.0) fL MCH 28.5 (28.0-33.3) pg MCHC 32.3 (31.6-35.5) g/dL RDW 13.5 (11.5-14.5) % Plt Count 261 (140-400) K/mcL MPV 10.3 (9.4-12.4) fL Immature Gran % 0.3 (0-4) % Seg Neutrophils % 57.3 % Lymphocytes % 27.4 % Monocytes % 8.8 % Eosinophils % 5.1 % Basophils % 1.1 % Neutrophils # 4.3 (1.6-8.9) K/mcL Lymphocytes # 2.1 (0.6-4.6) K/mcL Monocytes # 0.7 (0.0-1.3) K/mcL Eosinophils # 0.4 (0.0-0.6) K/mcL Basophils # 0.1 (0.0-0.2) K/mcL PT 11.5 (9.4-12.1) Seconds INR 1.0 APTT 36.5 H (26.0-36.0) Seconds Sodium 141 (136-145) mEq/L Potassium 4.7 (3.5-5.1) mEq/L Chloride 107 (98-107) mEq/L Carbon Dioxide 24 (23-29) mEq/L BUN 20 (8-23) mg/dL Creatinine 1.19 (0.70-1.30) mg/dL Est GFR ( Amer) > 60 (> 60) Est GFR (Non-Af Amer) > 60 (> 60) BUN/Creatinine Ratio 17 (6-26) Glucose 140 H (70-105) mg/dL Calculated Osmolality 297 (280-300) Calcium 9.6 (8.6-10.3) mg/dL Troponin I < 0.03 (< 0.04) ng/mL Urine Color (Yellow) Urine Clarity (Clear) Urine pH (5.0-8.0) pH Units Ur Specific [place] (1.010-1.025) Urine Protein (Neg-Trace) mg/dL Urine Glucose (UA) (Normal) mg/dL Urine Ketones (Negative) mg/dL Urine Blood (Negative) Urine Nitrite (Negative) Urine Bilirubin (Negative) Urine Urobilinogen (Normal) mg/dL Ur Leukocyte Esterase (Negative) Urine Microscopic RBC (0-3) per hpf Urine Microscopic WBC (0-3) per hpf Ur Squamous Epith Cells (None-Few) per lpf Urine Bacteria (None-Few) per hpf Hyaline Casts (None-Few) per lpf Ur Culture Indicated? (NO) 02/24/19 Range/Units 16:17 WBC (4.3-11.1) K/mcL RBC (4.19-5.50) M/mcL Hgb (12.9-16.9) g/dL Hct (37.5-50.1) % MCV (83.0-100.0) fL MCH (28.0-33.3) pg MCHC (31.6-35.5) g/dL RDW (11.5-14.5) % Plt Count (140-400) K/mcL MPV (9.4-12.4) fL Immature Gran % (0-4) % Seg Neutrophils % % Lymphocytes % % Monocytes % % Eosinophils % % Basophils % % Neutrophils # (1.6-8.9) K/mcL Lymphocytes # (0.6-4.6) K/mcL Monocytes # (0.0-1.3) K/mcL Eosinophils # (0.0-0.6) K/mcL Basophils # (0.0-0.2) K/mcL PT (9.4-12.1) Seconds INR APTT (26.0-36.0) Seconds Sodium (136-145) mEq/L Potassium (3.5-5.1) mEq/L Chloride (98-107) mEq/L Carbon Dioxide (23-29) mEq/L BUN (8-23) mg/dL Creatinine (0.70-1.30) mg/dL Est GFR ( Amer) (> 60) Est GFR (Non-Af Amer) (> 60) BUN/Creatinine Ratio (6-26) Glucose (70-105) mg/dL Calculated Osmolality (280-300) Calcium (8.6-10.3) mg/dL Troponin I (< 0.04) ng/mL Urine Color Yellow (Yellow) Urine Clarity Clear (Clear) Urine pH 5.5 (5.0-8.0) pH Units Ur Specific [place] 1.021 (1.010-1.025) Urine Protein 100 H (Neg-Trace) mg/dL Urine Glucose (UA) Normal (Normal) mg/dL Urine Ketones Negative (Negative) mg/dL Urine Blood Negative (Negative) Urine Nitrite Negative (Negative) Urine Bilirubin Negative (Negative) Urine Urobilinogen Normal (Normal) mg/dL Ur Leukocyte Esterase Negative (Negative) Urine Microscopic RBC 0-3 (0-3) per hpf Urine Microscopic WBC 0-3 (0-3) per hpf Ur Squamous Epith Cells None Seen (None-Few) per lpf Urine Bacteria None Seen (None-Few) per hpf Hyaline Casts None Seen (None-Few) per lpf Ur Culture Indicated? NO (NO) Attestation Statement - Attestation Attestation: I examined this patient and my medical decision-making was reviewed with the Resident Physician. I agree with the documented findings, disposition and treatment plan as described except to the extent set forth below. 68-year-old male presents emergency of for chest pain issues. Patient saw his track supervisor today. She sent him to the ER to be admitted for heart catheterization. He does have history of coronary disease with risk factors. EKG was unchanged from EKG May 2018. On physical exam he looks well. He is in no acute distress. He has no active chest pain. All his labs are negative. Chest x-ray normal. EKG documentation was reviewed by myself with the resident and agree with her documentation and interpretation.
[2019-02-24] MEDS ORDERED: *HR* Heparin 5,000 UNIT/ML VIAL IVP ONE (17:04)
[2019-02-24] MEDS ORDERED: *HR* Heparin 5,000 UNIT/ML VIAL IVP PRN (17:04)
[2019-02-24] MEDS ORDERED: Nitroglycerin 25 MG/250 ML INFUS..BTL IVC SCH (17:15)
[2019-02-24] MEDS ORDERED: Heparin 25,000 UNIT/250 ML D5W 25,000 UNIT/250 ML IV.SOLN IVC SCH (17:15)
[2019-02-24] MEDS ORDERED: Ondansetron ODT 4 MG TAB.RAPDIS SL PRN (18:11)
[2019-02-24] MEDS ORDERED: Naloxone 0.4 MG/ML INJ IVP PRN (18:11)
[2019-02-24] MEDS ORDERED: *HR* HYDROcodone/Acet 5/325 mg TABLET PO PRN (18:11)
[2019-02-24] MEDS ORDERED: Acetaminophen 325 MG TABLET PO PRN (18:11)
--- NOTE | 2019-02-24 18:37 | Internal Med History&Physical ---
Date of Encounter: 02/24/19 Time of Encounter: 18:18 Internal Medicine - H&P: HPI Chief complaint: cp Admitted From: Emergency Dept Plans for Post Hospital Care: Home History of present illness: Mr. Alexander is a 68 year old male asked medical history of CAD status post CABG, hypertension hyperlipidemia diabetes. Patient has been experiencing intermittent chest discomfort/pressure for the past few months with associated dyspnea. No nausea vomiting diaphoresis. Pain improved with sublingual nitroglycerin there are no aggravating factors. Last sublingual nitroglycerin was approximately 3-4 days ago symptoms do occur at rest and with exertion. He has known history of CAD with a CABG in 2013 at [facility] and a redo a CABG [facility] in 2015 most recent cardiac catheterization was 2017. He was originally presented to [facility] with the complaints of continued chest pain. He was having chest pain in the office EKG was obtained with no ST-T wave abnormalities. He was sent to the ER initial troponin was negative. He was placed on heparin and nitroglycerin after ER physician discussed case with Dr. Jake nolan. Currently patient is chest pain-free he does have some slight ST elevation and anterior leads-ER report did speak with Dr. Callejas who advised patient to start on nitro drip until patient's pain is 0 -currently patient is pain-free he will be admitted made nothing by mouth after midnight for cardiac catheterization in a.m. Past Med Surg Social Fam HX - Past Medical History Medical history: diabetes, hyperlipidemia, hypertension, asthma, CVA, coronary artery disease Additional medical history: left side weakness Psychiatric history: no psych history - Past Surgical History Surgical History: coronary bypass (CABG), angioplasty/stent Additional surgical history: CABGx2 - Social History Smoking Status: Never smoker Smokeless Tobacco Status: No Alcohol use: none Drug use: none - Family History Brother Adopted: No Living Status: Still Living Hx Family Cardiac Disorders: Yes (HEART DISEASE) Hx Family Respiratory Disorders: Yes (ASTHMA) Hx Family Cancer: No Hx Family GI Disorders: No Hx Family Endocrine Disorder: No (DIABETES) Hx Family Neuromuscular Disorders: No Hx Family Neurologic Disorders: No Hx Family HEENT Disorders: No Hx Family Autoimmune Disorders: No Sister Adopted: No Living Status: Still Living Hx Family Cardiac Disorders: No Hx Family Respiratory Disorders: No Hx Family Cancer: No Hx Family Endocrine Disorder: Yes (DIABETES) Hx Family Neuromuscular Disorders: No Hx Family Neurologic Disorders: No Hx Family HEENT Disorders: No Hx Family Autoimmune Disorders: No Mother Hx Family Cardiac Disorders: Yes (CARDIAC DISEASE.) Internal Medicine - H&P: Meds Albuterol Sulfate [Proair Hfa] 2 puff IH Q4-6H PRN 10/04/15 [History] Aspirin [Adult Low Dose Aspirin EC] 162 mg PO QAM 10/04/15 [History] Fenofibrate [Lofibra] 160 mg PO QPM 10/04/15 [History] Gabapentin [Neurontin] 300 mg PO BID 10/04/15 [History] Hyoscyamine Sulfate 0.125 mg PO TID PRN 10/04/15 [History] Insulin LISPRO [HumaLOG] 0 units SQ TIDWM 10/04/15 [History] Metformin HCl [Glucophage] 1,000 mg PO BID 10/04/15 [History] Metoprolol Tartrate [Lopressor] 50 mg PO BID 10/04/15 [History] Multivitamin/Iron/Folic Acid [Centrum Complete Multivit Tab] 1 tab PO QAM 10/04/15 [History] Nitroglycerin 0.4 mg SL AD PRN 10/04/15 [History] Ondansetron HCl [Zofran] 8 mg PO BID PRN 10/04/15 [History] Simvastatin [Zocor] 40 mg PO QPM 10/04/15 [History] Vitamin B Complex 1 cap PO QAM 10/04/15 [History] Dulaglutide [Trulicity] 1.5 mg SQ FR 04/08/17 [History] Insulin Degludec [Tresiba Flextouch U-200] 60 unit SQ QAM 06/09/18 [History] Allergy/AdvReac Type Severity Reaction Status Date / Time No Known Allergies Allergy Verified 07/29/18 15:07 All Systems PM: A 10-system review of systems was performed and is negative for pertinent findings except as documented above in the HPI. - Cardiovascular Cardiovascular ROS IM: chest pain - Constitutional Vitals: Temp Pulse Resp BP Pulse Ox 98 F 72 16 145/80 96 02/24/19 15:52 02/24/19 17:52 02/24/19 17:52 02/24/19 17:52 02/24/19 17:52 General appearance: Present: A&O X 3 Exam: . - Head Head exam: Present: atraumatic, normocephalic - Eye Eye exam: Present: PERRL, conjuntiva pink, sclera anicteric Pupils: Present: PERRL - Neck Neck exam general surgery: Present: supple, trachea midline. Absent: lymphadenopathy - Respiratory Respiratory exam: Present: CTAB. Absent: accessory muscle use, rales, rhonchi, wheezes - Cardiovascular Cardiovascular exam: Present: RRR, +S1, +S2. Absent: diastolic murmur, gallop, rubs, systolic murmur - GI/Abdominal GI/Abdominal exam: Present: normal bowel sounds, soft, no peritoneal signs. Absent: distended, tenderness - Extremities Exam Extremities exam: Present: warm, radial pulses palpable and symmetrical. Absent: calf tenderness, cyanotic, pedal edema - Neurological Exam Neurological exam: Present: CN II-XII intact, oriented X3, no focal deficits. Absent: pronater drift, facial droop, speech deficit - Skin Skin exam: Present: dry, intact Internal Med - H&P Results - Labs CBC & Chem 7: 02/24/19 15:54 02/24/19 15:54 Labs: Short CBC 02/24/19 Range/Units 15:54 WBC 7.6 (4.3-11.1) K/mcL Hgb 12.9 (12.9-16.9) g/dL Hct 39.9 (37.5-50.1) % Plt Count 261 (140-400) K/mcL Neutrophils # 4.3 (1.6-8.9) K/mcL BMP 02/24/19 15:54 Sodium 141 Potassium 4.7 Chloride 107 Carbon Dioxide 24 BUN 20 Creatinine 1.19 Glucose 140 H Calcium 9.6 Cardiac Enzymes 02/24/19 Range/Units 15:54 Troponin I < 0.03 (< 0.04) ng/mL Urine 02/24/19 Range/Units 16:17 Urine Color Yellow (Yellow) Urine Clarity Clear (Clear) Urine pH 5.5 (5.0-8.0) pH Units Ur Specific [place] 1.021 (1.010-1.025) Urine Protein 100 H (Neg-Trace) mg/dL Urine Glucose (UA) Normal (Normal) mg/dL - Impressions ITS Impressions Chest X-Ray 02/24/19 15:39 IMPRESSION: No acute process. D/ / 02/24/2019 15:53:49 Stevie Noel MD / [email or web address] Interpreting Provider: Stevie Noel MD - Assessment and Plan (1) Unstable angina pectoris Current Visit: No Status: Acute Assessment and plan: Patient has been experiencing intermittent chest pain over the past month pain occurring at rest and during exertion with relief from nitroglycerin. His have a past history of CAD with CABG in 2013 as well as a redo in [facility] 2015, catheterization 2017 Initial troponin was negative continue to trend troponin EKG did show some slight ST elevations we will continue to monitor Continue with nitroglycerin to maintain chest pain at 0 and heparin drip and chest pain recurs notify cardiology currently patient is chest pain-free Continue with aspirin and statin beta carlos Cardiology has been consulted Nothing by mouth midnight for cardiac catheterization in a.m. Cardiac catheterization Apr 2017: Impressions: Double vessel coronary artery disease. The left ventricle is normal and has normal contractility EF 60% S/P CABG 3 of 3 patent bypass grafts. Coronary Dominance: right Lesion Findings/Interventions * Left Main Coronary Ar rosa There is a 25% stenosis in the LMCA. * Left Anterior Descending There is a 100% instent restenosis in the Mid LAD- DENTAL SCHEDULER. Mid to Distal LAD fill via patent LYNN graft. * Circumflex There is a 20% stenosis in the Proximal Circumflex. * Ramus There is a 90% stenosis in the Ramus- fills via [place] vessel and patent SVG. * Right Coronary Artery There is a 40% stenosis in the Proximal RCA. There is a 40% stenosis in the Mid RCA. There is a 30% stenosis in the Distal RCA. Additional Findings: Grafts * The left internal mammary graft to the Mid LAD is patent. VICENTE flow is 3. * Y graft patent- AIXA graft portion to diagonal 1 is patent. SVG portion to ramus patent. Stress 03/2017:Impression: Gated LVEF = 66%. Small sized, mild-moderate intensity, reversible perfusion defect limited to the LV apex. Findings are consistent with a small area of reversible ischemia. All other segmental perfusion normal in rest and stress. Echo 04/15 Impressions: Normal LV systolic function, LVEF 55-60%. Mild concentric left ventricular hypertrophy. Normal right ventricular size and function. Mildly dilated left atrium. No significant valvular dysfunction. Unable to estimate RVSP due to lack of TR jet. (2) CAD (coronary artery disease) Current Visit: No Status: Chronic Assessment and plan: Cardiac catheterization Apr 2017: Impressions: Double vessel coronary artery disease. The left ventricle is normal and has normal contractility EF 60% S/P CABG 3 of 3 patent bypass grafts. Coronary Dominance: right Lesion Findings/Interventions * Left Main Coronary Artery There is a 25% stenosis in the LMCA. * Left Anterior Descending There is a 100% instent restenosis in the Mid LAD- DENTAL SCHEDULER. Mid to Distal LAD fill via patent LYNN graft. * Circumflex There is a 20% stenosis in the Proximal Circumflex. * Ramus There is a 90% stenosis in the Ramus- fills via [place] vessel and patent SVG. * Right Coronary Artery There is a 40% stenosis in the Proximal RCA. There is a 40% stenosis in the Mid RCA. There is a 30% stenosis in the Distal RCA. Additional Findings: Grafts * The left internal mammary graft to the Mid LAD is patent. VICENTE flow is 3. * Y graft patent- AIXA graft portion to diagonal 1 is patent. SVG portion to ramus patent. Stress 03/2017:Impression: Gated LVEF = 66%. Small sized, mild-moderate intensity, reversible perfusion defect limited to the LV apex. Findings are consistent with a small area of reversible ischemia. All other segmental perfusion normal in rest and stress. Echo 04/15 Impressions: Normal LV systolic function, LVEF 55-60%. Mild concentric left ventricular hypertrophy. Normal right ventricular size and function. Mildly dilated left atrium. No significant valvular dysfunction. Unable to estimate RVSP due to lack of TR jet. Continued aspirin and statin beta carlos Continuous cardiac monitoring Qualifiers: Coronary Disease-Associated Artery/Lesion type: bypass graft [place] vs. transplanted heart: [place] heart Associated angina: with unstable angina Qualified Code(s): I25.700 - Atherosclerosis of coronary artery bypass graft(s), unspecified, with unstable angina pectoris (3) Diabetes Current Visit: No Status: Chronic Assessment and plan: Accu-Cheks before meals at bedtime with sliding scale insulin Qualifiers: Diabetes mellitus type: type 2 Diabetes mellitus skilled nursing insulin use: with skilled nursing use Diabetes mellitus complication status: with neurologic complications Diabetes mellitus complication detail: with unspecified neuropathy Qualified Code(s): E11.40 - Type 2 diabetes mellitus with diabetic neuropathy, unspecified; Z79.4 - skilled nursing (current) use of insulin (4) HTN (hypertension) Current Visit: No Status: Chronic Assessment and plan: Continue with metoprolol currently on nitroglycerin as well Qualifiers: Hypertension type: essential hypertension Qualified Code(s): I10 - Essential (primary) hypertension (5) Hx of CABG Current Visit: No Status: Chronic Assessment and plan: past history of CAD with CABG in 2013 as well as a redo in [facility] 2015, catheterization 2017 Continued aspirin and statin beta carlos Cardiology consulted Undergo cardiac catheter in the a.m. (6) DVT prophylaxis Current Visit: Yes Status: Acute Assessment and plan: Heparin drip - Time Spent With Patient Total time spent is greater than 50% in coordination of care (as documented) at patient's floor/unit and/or counseling patient:
[2019-02-24] MEDS ORDERED: D5% in Water 1,000 ML IVC PRN (18:42)
[2019-02-24] MEDS ORDERED: *HR* Dextrose 50 % in Water (Syg) 50 ML SYRINGE IVP PRN (18:42)
[2019-02-24] MEDS ORDERED: Dextrose Gel 15 GM/37.5 ML TUBE PO PRN ×2 (18:42)
[2019-02-24] MEDS ORDERED: Insulin LISPRO 300 UNITS/3 ML VIAL SQ SCH (21:00)
[2019-02-25] MEDS: *HR* Heparin 5,000 UNIT/ML VIAL IVP PRN ×2 (00:31→07:06)
[2019-02-25 03:17] LABS: Hematocrit 38.5 % (37.5-50.1); Hemoglobin 12.6 g/dL (12.9-16.9); Mean Corpuscular HGB Conc 32.7 g/dL (31.6-35.5); Mean Corpuscular Hemoglobin 28.6 pg (28.0-33.3); Mean Corpuscular Volume 87.5 fL (83.0-100.0); Mean Platelet Volume 10.4 fL (9.4-12.4); Platelet Count 241 K/mcL (140-400); Red Cell Distribution Width 13.5 % (11.5-14.5); White Blood Count 6.3 K/mcL (4.3-11.1)
[2019-02-25 03:37] LABS: BUN/Creatinine Ratio 16 (6-26); Blood Urea Nitrogen 17 mg/dL (8-23); Calcium 9.3 mg/dL (8.6-10.3); Carbon Dioxide 27 mEq/L (23-29); Chloride 107 mEq/L (98-107); Cholesterol 99 mg/dL (< 200); Glucose 137 mg/dL (70-105); HDL Cholesterol 33 mg/dL (40-59); LDL Cholesterol,Calculated 21 mg/dL (0-99); Magnesium 1.5 mg/dL (1.6-2.6); Osmolality,Calculated 298 (280-300); Potassium 3.8 mEq/L (3.5-5.1); Sodium 142 mEq/L (136-145); Triglycerides 226 mg/dL (< 150); eGFR For African Americans > 60 (> 60); eGFR For Non-African Americans > 60 (> 60)
[2019-02-25] MEDS: Insulin LISPRO 300 UNITS/3 ML VIAL SQ SCH ×3 (07:42→16:12)
[2019-02-25] MEDS ORDERED: Aspirin 81 MG TAB.CHEW PO SCH (09:00)
--- NOTE | 2019-02-25 09:34 | Internal Med Progress Note ---
Hospitalist Progress Note - Encounter Date of Encounter: 02/25/19 Time of Encounter: 09:31 - Subjective Interval History: Patient was seen and examined at bedside currently denies any chest pain continues to be on nitroglycerin drip. Cardiology has been consulted and cardiac catheter is pending at this time - Exam Vitals: Temp Pulse Resp BP Pulse Ox 98.2 F 66 16 152/84 96 02/25/19 06:28 02/25/19 08:28 02/25/19 06:28 02/25/19 08:28 02/25/19 08:28 - Assessment and Plan (1) Unstable angina pectoris Current Visit: No Status: Acute (2) CAD (coronary artery disease) Current Visit: No Status: Chronic (3) Diabetes Current Visit: No Status: Chronic (4) HTN (hypertension) Current Visit: No Status: Chronic (5) Hx of CABG Current Visit: No Status: Chronic (6) DVT prophylaxis Current Visit: Yes Status: Acute - Time Spent with Patient Total time spent is greater than 50% in coordination of care (as documented) at patient's floor/unit and/or counseling patient: Internal Medicine: Result - Labs CBC & Chem 7: 02/25/19 02:58 02/25/19 02:58 Labs: Short CBC 02/24/19 02/25/19 Range/Units 15:54 02:58 WBC 7.6 6.3 (4.3-11.1) K/mcL Hgb 12.9 12.6 L (12.9-16.9) g/dL Hct 39.9 38.5 (37.5-50.1) % Plt Count 261 241 (140-400) K/mcL Neutrophils # 4.3 (1.6-8.9) K/mcL BMP 02/24/19 02/25/19 15:54 02:58 Sodium 141 142 Potassium 4.7 3.8 Chloride 107 107 Carbon Dioxide 24 27 BUN 20 17 Creatinine 1.19 1.08 Glucose 140 H 137 H Calcium 9.6 9.3 Cardiac Enzymes 02/24/19 02/24/19 02/25/19 Range/Units 15:54 21:05 02:58 Troponin I < 0.03 < 0.03 < 0.03 (< 0.04) ng/mL Urine 02/24/19 Range/Units 16:17 Urine Color Yellow (Yellow) Urine Clarity Clear (Clear) Urine pH 5.5 (5.0-8.0) pH Units Ur Specific [place] 1.021 (1.010-1.025) Urine Protein 100 H (Neg-Trace) mg/dL Urine Glucose (UA) Normal (Normal) mg/dL - ABG Interpretation ABG results: PT/INR, D-dimer PT 11.5 Seconds (9.4-12.1) 02/24/19 15:54 - Impressions Impressions Chest X-Ray 02/24/19 15:39 IMPRESSION: No acute process. D/ / 02/24/2019 15:53:49 Stevie Noel MD / tito Interpreting Provider: Stevie Noel MD Consult Discharge Plan - Plan (2) CAD (coronary artery disease) Qualifiers: Coronary Disease-Associated Artery/Lesion type: bypass graft [place] vs. transplanted heart: [place] heart Associated angina: with unstable angina Qualified Code(s): I25.700 - Atherosclerosis of coronary artery bypass graft(s), unspecified, with unstable angina pectoris (3) Diabetes Qualifiers: Diabetes mellitus type: type 2 Diabetes mellitus group home insulin use: with group home use Diabetes mellitus complication status: with neurologic complications Diabetes mellitus complication detail: with unspecified neuropathy Qualified Code(s): E11.40 - Type 2 diabetes mellitus with diabetic neuropathy, unspecified; Z79.4 - [facility] (current) use of insulin (4) HTN (hypertension) Qualifiers: Hypertension type: essential hypertension Qualified Code(s): I10 - Essential (primary) hypertension
--- NOTE | 2019-02-25 11:24 | Cardiology Consult Note ---
Date of Encounter: 02/25/19 Time of Encounter: 11:20 Assessment and Plan (1) Unstable angina pectoris Current Visit: No Status: Acute Per Cardiology: Currently chest pain-free. On IV nitroglycerin drip. Troponins negative 3. Discussed and reviewed with Dr. Blanco and Dr. Elizabeth, plan for catheterization today. We will discontinue IV heparin drip. Discussed with primary service. (2) CAD (coronary artery disease) Current Visit: No Status: Chronic Per Cardiology: Has known history of CAD s/p CABG in 2013 [place], redo CABG [facility] 2015. Most recent cardiac catheterization 2016 as noted below. Cardiac catheterization Apr 2017: Impressions: Double vessel coronary artery disease. The left ventricle is normal and has normal contractility EF 60% S/P CABG 3 of 3 patent bypass grafts. Coronary Dominance: right Lesion Findings/Interventions * Left Main Coronary Artery There is a 25% stenosis in the LMCA. 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 Mid to Distal LAD fill via patent LYNN graft. * Circumflex There is a 20% stenosis in the Proximal Circumflex. * Ramus There is a 90% stenosis in the Ramus- fills via [place] vessel and patent SVG. * Right Coronary Artery There is a 40% stenosis in the Proximal RCA. There is a 40% stenosis in the Mid RCA. There is a 30% stenosis in the Distal RCA. Additional Findings: Grafts * The left internal mammary graft to the Mid LAD is patent. VICENTE flow is 3. * Y graft patent- AIXA graft portion to diagonal 1 is patent. SVG portion to ramus patent. On aspirin, statin, beta carlos, and nitroglycerin drip. Qualifiers: Coronary Disease-Associated Artery/Lesion type: bypass graft [place] vs. transplanted heart: [place] heart Associated angina: with unstable angina Qualified Code(s): I25.700 - Atherosclerosis of coronary artery bypass graft(s), unspecified, with unstable angina pectoris Discussion w patient/family: The assessment and plan as outlined above was discussed with the patient and/or family members who expressed understanding and agreement. All questions were answered. Thank you for involving us in the care of your patient. Please call with any questions. History of Present Illness Consult date: 02/25/19 Consult reason: [place] Chief complaint: CP History of present illness: Mr. Alexander is a 68 year old male with a relevant past medical history of HTN, HLD, CAD with history of CABG and redo CABG, DM 2, asthma. Seen by Dr. Marisol Bey yesterday and sent to the hospital for unstable angina symptoms. Cardiology consult today for chest pain, shortness of breath and to evaluate for left heart catheterization. Patient seen with at bedside. Currently chest pain-free. Confirms worsening chest pressure/discomfort intermittently over the past few months at rest and with exertion. He also reports increased overall short of breath at rest and with exertion as well. Reports improvement with subclinical nitroglycerin pills. Denies any other symptoms. Reports compliance with medication regimen. Denies any active bleeding or blood loss. reports negative stress test May 2018. Past Med Surg Social Fam HX - Past Medical History Attestation: Yes The following information was validated with the patient. Source: patient, old records reviewed Medical history: diabetes, hyperlipidemia, hypertension, asthma, CVA, coronary artery disease Additional medical history: left side weakness Psychiatric history: no psych history - Past Surgical History Surgical History: coronary bypass (CABG), angioplasty/stent Additional surgical history: CABGx2, 3 cardiac stents - Social History Smoking Status: Never smoker Smokeless Tobacco Status: No Alcohol use: none Drug use: none - Family History Brother Adopted: No Living Status: Still Living Hx Family Cardiac Disorders: Yes (HEART DISEASE) Hx Family Respiratory Disorders: Yes (ASTHMA) Hx Family Cancer: No Hx Family GI Disorders: No Hx Family Endocrine Disorder: No (DIABETES) Hx Family Neuromuscular Disorders: No Hx Family Neurologic Disorders: No Hx Family HEENT Disorders: No Hx Family Autoimmune Disorders: No Sister Adopted: No Living Status: Still Living Hx Family Cardiac Disorders: No Hx Family Respiratory Disorders: No Hx Family Cancer: No Hx Family Endocrine Disorder: Yes (DIABETES) Hx Family Neuromuscular Disorders: No Hx Family Neurologic Disorders: No Hx Family HEENT Disorders: No Hx Family Autoimmune Disorders: No Mother Hx Family Cardiac Disorders: Yes (CARDIAC DISEASE.) Medications and Allergies Albuterol Sulfate [Proair Hfa] 2 puff IH Q4-6H PRN 10/04/15 [History] Aspirin [Adult Low Dose Aspirin EC] 81 mg PO BID 10/04/15 [History] Fenofibrate [Lofibra] 160 mg PO QPM 10/04/15 [History] Gabapentin [Neurontin] 300 mg PO BID 10/04/15 [History] Hyoscyamine Sulfate 0.125 mg PO TID PRN 10/04/15 [History] Insulin LISPRO [HumaLOG] 13 units SQ TIDWM 10/04/15 [History] Metformin HCl [Glucophage] 1,000 mg PO BID 10/04/15 [History] Metoprolol Tartrate [Lopressor] 50 mg PO BID 10/04/15 [History] Multivitamin/Iron/Folic Acid [Centrum Complete Multivit Tab] 1 tab PO QAM 10/04/15 [History] Nitroglycerin 0.4 mg SL AD PRN 10/04/15 [History] Ondansetron HCl [Zofran] 8 mg PO BID PRN 10/04/15 [History] Simvastatin [Zocor] 40 mg PO QPM 10/04/15 [History] Vitamin B Complex 1 cap PO QAM 10/04/15 [History] Dulaglutide [Trulicity] 1.5 mg SQ FR 04/08/17 [History] Insulin Glargine,Hum.rec.anlog [Toujeo Solostar] 60 units SQ QAM 02/24/19 [History] Isosorbide MONOnitrate [Isosorbide Mononitrate ER] 30 mg PO QPM 02/24/19 [History] Lisinopril [Zestril] 1 tab PO QPM 02/24/19 [History] Allergy/AdvReac Type Severity Reaction Status Date / Time No Known Allergies Allergy Verified 07/29/18 15:07 All Systems Review: The remainder of the systems were reviewed and are negative - Cardiovascular Cardiovascular: as per HPI, chest pain at rest, chest pain with exertion, dyspnea at rest, dyspnea on exertion Physical Examination Vital Signs, Last 4 Hours Pulse BP Pulse Ox 02/25/19 10:50 56 136/82 95 02/25/19 08:28 66 152/84 96 Selected Entries 02/25/19 06:28 Temperature 98.2 F General: Conversant, No Apparent Distress HEENT: Atraumatic, Normocephaly, Mucus Membranes Moist Neck: No JVD, Normal carotid pulses Cardiac: Reg Rate and Rhythm, Normal S1 and S2, No Murmur Lungs: Normal Breath Sounds, No Wheeze, Rales, Rhonchi Neuro: Alert and responsive, No focal deficits noted Abdomen: Soft, Non-Tender Skin: No rashes noted on visualized skin Musculoskeletal: No Chest Wall Tenderness Extremities: No Clubbing, No Cyanosis, No Edema, Normal Pulses Results 02/25/19 02:58 02/25/19 02:58 Lab Results Laboratory Tests 02/24/19 02/24/19 02/24/19 15:54 15:54 21:05 Hgb Hct INR 1.0 Creatinine Est GFR (Non-Af Amer) Troponin I < 0.03 < 0.03 LDL Cholesterol, Calc 02/25/19 02/25/19 02/25/19 02:58 02:58 02:58 Hgb 12.6 L Hct 38.5 INR Creatinine 1.08 Est GFR (Non-Af Amer) > 60 Troponin I < 0.03 LDL Cholesterol, Calc 21 ITS Impressions Chest X-Ray 02/24/19 15:39 IMPRESSION: No acute process. D/ / 02/24/2019 15:53:49 [facility] Inter[facility] Provider: Stevie Noel MD Active Medications Acetaminophen (Tylenol) 650 mg PO Q6HR PRN PRN Reason: Mild Pain/Fever Stop: 08/26/19 18:12 Last Admin: 02/25/19 05:46 Dose: 650 mg Documented by: Hydrocodone Bitart/Acetaminophen ([place] 5-325 Mg) 1 tab PO Q6HR PRN PRN Reason: Moderate Pain Stop: 08/26/19 18:12 Aspirin (Aspirin) 81 mg PO DAILY SHANNON Stop: 08/27/19 09:01 Last Admin: 02/25/19 07:38 Dose: 81 mg Documented by: Dextrose/Water (Dextrose 50% (Syg)) 25 ml IVP AD PRN PRN Reason: Hypoglycemia Stop: 08/26/19 18:43 Glucagon (Glucagen) 1 mg IM ONCE PRN PRN Reason: Hypoglycemia Stop: 08/26/19 18:43 Glucose (Gluctose) 15 gm PO ONCE PRN PRN Reason: Hypoglycemia Stop: 08/26/19 18:43 Glucose (Gluctose) 30 gm PO ONCE PRN PRN Reason: Hypoglycemia Stop: 08/26/19 18:43 Heparin Sodium (Porcine) (Heparin) 4,000 unit IVP Q6HR PRN PRN Reason: SEE COMMENTS Stop: 08/26/19 17:05 Heparin Sodium (Porcine) (Heparin) 2,000 unit IVP Q6H PRN PRN Reason: SEE COMMENTS Stop: 08/26/19 17:05 Last Admin: 02/25/19 07:06 Dose: 2,000 unit Documented by: Heparin Sodium/Dextrose (Heparin 25,000 Unit/250 Ml D5w) 25,000 unit in 250 mls @ 10.024 mls/hr IVC .Q24H SHANNON; Protocol Stop: 08/26/19 17:16 Last Titration: 02/25/19 06:59 Dose: 13.65 unit/kg/hr, 14.2 mls/hr Documented by: Nitroglycerin (Nitroglycerin Premix 25 Mg/250 Ml) 25 mg in 250 mls @ 3 mls/hr IVC .Q24H SHANNON; Protocol Stop: 08/26/19 17:16 Last Admin: 02/24/19 17:36 Dose: 5 mcg/min, 3 mls/hr Documented by: Dextrose (Dextrose 5%) 1,000 mls @ 100 mls/hr IVC .Q10H PRN PRN Reason: HYPOGLYCEMIA Stop: 08/26/19 18:43 Insulin Human Lispro (Humalog) 0 units SQ HS [facility]; Protocol Stop: 08/26/19 21:01 Last Admin: 02/24/19 20:47 Dose: Not Given Documented by: Insulin Human Lispro (Humalog) 0 units SQ TIDAC [facility]; Protocol Stop: 08/27/19 07:31 Last Admin: 02/25/19 07:42 Dose: Not Given Documented by: Metoprolol Tartrate (Lopressor) 50 mg PO BID SHANNON Stop: 08/26/19 21:01 Last Admin: 02/25/19 07:38 Dose: 50 mg Documented by: Naloxone HCl (Narcan) 0.4 mg IVP Q2MPRN PRN PRN Reason: SEE COMMENTS Stop: 08/26/19 18:12 Nitroglycerin (Nitroglycerin) 0.4 mg SL Q5MPRN PRN PRN Reason: Chest Pain Stop: 08/26/19 15:40 Ondansetron HCl (Zofran Odt) 4 mg SL Q8HR PRN PRN Reason: Nausea And Vomiting Stop: 08/26/19 18:12 Last Admin: 02/25/19 05:47 Dose: 4 mg Documented by: Simvastatin (Zocor) 40 mg PO HS SHANNON; Protocol Stop: 08/26/19 21:01 Last Admin: 02/24/19 21:30 Dose: 40 mg Documented by: - Imaging and Cardiology Stress Test: report reviewed Echo: report reviewed Cardiac cath: report reviewed - EKG Interpretation EKG results cardiology: personally reviewed, normal ECG, sinus rhythm, no diagnostic ischemia Consult Discharge Plan - Plan Referrals: Marla Lopes, [Primary Care Provider] -
--- NOTE | 2019-02-25 12:59 | Pre-Sedation Evaluation ---
Pre-sedation evaluation - Pre-sedation checklist Date of procedure: 02/25/19 Procedure: heart cath Recent Vitals: Last Vital Signs Temp 98.2 F 02/25/19 06:28 Pulse 56 02/25/19 10:50 Resp 16 02/25/19 06:28 BP 136/82 02/25/19 10:50 Pulse Ox 95 02/25/19 10:50 H&P (including ROS) documented in medical record: Yes Previous reaction to sedatives/anesthetics: No Dietary Status: NPO after Midnight Dentition: No loose teeth or bridges Possible difficult airway: No ASA Classification *see protocol: CLASS II-Mild systemic disease Cardiac Registry (Cardio Only) - Functional Capacity Functional Capacity: >=4 METS with symptoms - Clincal Frailty Scale Clinical Frailty Scale: Well
--- NOTE | 2019-02-25 13:26 | Event Note ---
Date of Encounter: 02/25/19 Time of Encounter: 13:24 - Cardiology Event Note Cath completed LVEF 45% inferior contraction abnormality. RCA mild disease LCA 100 lad and om LYNN to LAD patent. SVG/free AIXA to diag and OM patent. Recommend Medical therapy and no cardiac evaluation .
--- NOTE | 2019-02-25 13:50 | Invasive Diagnostic Lab Proc ---
Name: Vernon Alexander Michael Date of Study: 02/25/2019 Date: 1950 Ht: 75.2in Medical Record#: [id number] Age: 68 Wt: 225.97lb Gender: Male BSA: 2.32 Order #: [id number] BMI: 28.1 Physicians Procedure Physician: Lamin Elizabeth MD Referring MD: Referring MD: Staff Name Position Time In [place] RT (R) Scrub 12:57 PM NkaulNata RT (R) Monitor 12:57 PM Ben Lange RN Fuel Cell Assembler 12:57 PM Anastasiya Gomez RT (R) Scrub 01:07 PM Procedures Performed Procedure L HRT ART/GRFT ANGIO Pre-Procedure Checklist Informed consent is complete signed and on chart. H&P is on chart. ID band is on and ID verified with patient. Patient NPO for procedure The procedure was described for the patient and questions were answered. Blood Pressure: 186/101 ECG is on chart. Rhythm: NSR Plan of Care Patient will tolerate the procedure without complications. Adequate level of comfort will be maintained. Hemodynamics will remain stable Patient will recover from procedure without complications. Respiratory function will be maintained. Cardiac rhythm will remain stable. Patient temperature will be maintained. Patient and/or family have verbalized understanding of the procedure. Patient Education Chief Complaint/Reason for Test: Cardiac Cath Developmental Category: Geriatric (65+ years) Developmentally Appropriate for Age: Yes Learning Barriers: None Education Needs: Procedure Education Method: Verbal Information Taught: Cardiac Cath Educational Evaluation: Able to repeat information Intravenous Access Time IV Size Location DC'd Fluid/Drip Rate Units RN 12:44 PM 20g 1 1/4" Patent On Arrival Rt Arm 0.9NaCl 25 ml/hr Ben Lange RN Allergies No Known Allergies Vital Signs Time BP (mmHg) HR (bpm) O2 Sat. RR (bpm) LOC 01:00 PM / % 5 = Fully awake and oriented or at pre-proc level 01:00 PM / % 4 = Oriented but drowsy 01:01 PM 186 / 101 81 97 % 16 01:05 PM 168 / 89 75 98 % 16 01:10 PM 157 / 83 75 98 % 18 01:15 PM 161 / 87 78 96 % 16 01:20 PM 175 / 99 83 98 % 16 01:25 PM 178 / 96 80 96 % 18 Procedural Medications Time Medication Dose Units Method Given By 01:00 PM Oxygen 2 L/min nasal cannula Ben Lange RN 01:00 PM Versed 2 mg Intravenous Ben Lange RN 01:09 PM Lidocaine 2% 10 ml Subcutaneous Lamin Elizabeth MD ASA Classification: CLASS II- Mild systemic disease (i.e. well-controlled diabetes, hypertension, asthma, cigarette smoking) Rudi Score Preprocedure Postprocedure Activity 2- Moves 4 extremities sustained head lift Activity 2- Moves 4 extremities sustained head lift Circulation 2- SBP +/= 20 points of pre-anesthetic level Circulation 2- SBP +/= 20 points of pre-anesthetic level Consciousness 2- Awake and alert oriented x 3 Consciousness 2- Awake and alert oriented x 3 O2 Saturation 2- Able to maintain O2 satruation of 92% on room air O2 Saturation 2- Able to maintain O2 satruation of 92% on room air Respiratory 2- Able to deep breathe and cough well Respiratory 2- Able to deep breathe and cough well Total Score 10 Total Score 10 Contrast Agent: Isovue Diagnostic Contrast: 100 ml Total Contrast: 100 ml Fluoro Dose: 26 mGy Procedure Log Time Note Enter By 12:57 PM Pt arrived to labor delivery rn 2 at 12:57 twilson 12:57 PM Patient charges- Angio tray pack, Navilyst 3mm J, Pulse Oximetry and ACIST tubing and transducer twilson 12:57 PM CathStat 12:57 PM Marisol Montejo RT (R) Position: Scrub Time in: 12:57 twilson 12:57 PM Nata Mota RT (R) Position: Monitor Time in: 12:57 twilson 12:57 PM Ben Lange RN Position: Fuel Cell Assembler Time in: 12:57 twilson 12:57 PM Physician arrived 12:57 twilson 12:57 PM Meet and greet completed twilson 12:57 PM Sign in performed according to hospital policy. Informed consent was obtained. twilson 12:59 PM Vitals capture started with the following parameters, Patient=Adult, Interval=5 min, Initial Qqheccsw=064 mmHg, Deflation Rate=3 mmHg, Cuff placed on Right Arm 12:59 PM Recorded ECG: HR=79 Condition=Condition 1 01:00 PM Procedure start 13:00 twilson 01:00 PM Time: 13:00 Oxygen on at 2 L/min per nasal cannula by Ben Lange RN twilson : PM Time: 13:00 Versed 2 mg Intravenous Given by [facility] PM Time: 13:00 Patient comfortable and pain free: Yes twilson : PM Time: 13:00LOC: 5 = Fully awake and oriented or at pre-proc level twilson : PM HR=81 bpm, DSOL=207/101 mmhg, SpO2=97.0 %, Resp=16 B/min 01:05 PM HR=75 bpm, ORVF=614/89 mmhg, SpO2=98.0 %, Resp=16 B/min 01: PM Hair removed from procedure site in procedure lab using clippers. Bilateral groin prepped with Chloraprep by Nata Mota (R), then patient was draped. Skin intact. twilson : PM ASA Class CLASS II- Mild systemic disease (i.e. well-controlled diabetes, hypertension, asthma, cigarette smoking) twilson : PM Anastasiya Gomez (R) Position: Scrub Time in: 13: twilson :08 PM Pressure channel 2 zeroed. : PM Time out was performed according to hospital policy. Conscious sedation and anesthesia was achieved (see medication log with in this report above) twilson : PM Clinical Presentation: Unstable angina twilson : PM Time: 13:09 10 ml Lidocaine 2% to right groin Subcutaneous Given by Lamin Elizabeth MD twilson : PM HR=75 bpm, VNBK=520/83 mmhg, SpO2=98.0 %, Resp=18 B/min :11 PM Access obtained by percutaneous puncture. 6Fr 10cm Terumo [place] sheath placed in right Femoral artery. [id number] twilson : PM 6Fr Pigtail catheter inserted over the wire [facility] twilson : PM Recorded Pressure: LV, HR=72, Condition=Condition 1 (Left Ventricle) LV 176/6/11 01:11 PM Recorded Pressure: LV, HR=74, Condition=Condition 1 (Left Ventricle) LV 175/5/10 01:12 PM Catheter crossed the aortic valve and was selectively placed in the left ventricle. Pressures recorded on pullback for left heart catheterization. twilson 01:12 PM Wire removed twilson 01:12 PM Recorded Pressure: LV, Ao, HR=73, Condition=Condition 1 (Left Ventricle) LV 175/4/11, (Aorta) Ao 173/72/115 01:12 PM Bolus angiogram of left Ventricle complete: 10 ml/sec for a total of 10 mls twilson 01:12 PM Wire reinserted. twilson 01:12 PM Catheter removed twilson 01:12 PM 6Fr FR 4 catheter inserted over the wire DN twilson 01:13 PM Wire removed twilson 01:13 PM Recorded Pressure: Ao, HR=75, Condition=Condition 1 (Aorta) Ao 129/49/82 01:13 PM RCA angiography performed in multiple views. twilson 01:14 PM Recorded Pressure: Ao, HR=75, Condition=Condition 1 (Aorta) Ao 169/77/113 01:15 PM SVG to the Ramus angio performed in multiple views. twilson 01:15 PM Left JASPER to the LAD angio performed in multiple views. twilson 01:15 PM HR=78 bpm, RGEL=061/87 mmhg, SpO2=96.0 %, Resp=16 B/min 01:15 PM Recorded Pressure: Ao, HR=78, Condition=Condition 1 (Aorta) Ao 159/71/108 01:15 PM Y graft patent - AIXA to the 1st Diagonal angio performed in multiple views. twilson 01:15 PM Time: 13:00 Patient comfortable and pain free: Yes twilson 01:16 PM Time: 13:00LOC: 4 = Oriented but drowsy twilson 01:17 PM Wire reinserted. twilson 01:17 PM Catheter removed twilson 01:17 PM 6Fr FL 4 catheter inserted over the wire [facility] twilson 01:17 PM LCA angiography performed in multiple views. twilson 01:17 PM Recorded Pressure: Ao, HR=78, Condition=Condition 1 (Aorta) Ao 168/74/112 01:18 PM Recorded Pressure: Ao, HR=79, Condition=Condition 1 (Aorta) Ao 172/76/115 01:18 PM Wire reinserted. twilson 01:19 PM Wire and catheter removed, intact. twilson 01:20 PM Bolus angiogram of right Femoral complete: 5 ml/sec for a total of 5 mls twilson 01:20 PM Coronary Dominance: right twilson 01:20 PM HR=83 bpm, HLEV=952/99 mmhg, SpO2=98.0 %, Resp=16 B/min 01:21 PM Procedure completed at 13:21 02/25/2019 twilson :21 PM Did you address VICENTE flow and Dominance? YesCoronary Dominance: right twilson 01:21 PM Isovue 370 - 125ml,1 Bottle(s) used. twilson 01:21 PM Arterial sheath pulled, Perclose closure device used and was Successful S/N. LOT [id number] twilson :21 PM Estimated Blood Loss: less than 20cc twilson 01:22 PM Sign out completed: Radiation Dose 197.02 mGy, 25.9 Gy/cm2 Fluoro Time: 2.4 Isovue 370 - 200ml contrast 100 ml given by Lamin Elizabeth MD. Complications: None. 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 Sedation minutes 22. Cardiac Rehab Consult needed: No. Confirmed administered medications: Yes twilson 01:24 PM Family placed in consult room. twilson :25 PM HR=80 bpm, TIUZ=446/96 mmhg, SpO2=96.0 %, Resp=18 B/min 01:26 PM Post ECG NSR twilson :27 PM 13:27 Post Pulses Bilateral DP & PT 2+ twilson :27 PM 13:27 Post Pulses Bilateral radial 2+ twilson :27 PM Information taught Cardiac Cath and Perclose twilson :27 PM Education needs Procedure, Plan of Care, and Responsibilities of Patient in Care twilson :27 PM Learning barriers :None twilson :27 PM Education Methods Verbal twilson :27 PM Education evaluation Able to repeat information twilson :27 PM Site status No bleeding/ No Hematoma - Rt Groin as reported by Marisol Montejo RT (R) at 13:27 twilson 01:27 PM Opsite applied twilson 01:30 PM Vitals capture stopped. 01:31 PM Report given to Kendal CA[place] Pt taken to 3B Room #11. 13:31 twilson 01:32 PM Lesion found in Proximal LMCA. Pre Stenosis: 25 Pre VICENTE Flow: twilson 01:33 PM Lesion found in Mid LAD. Pre Stenosis: 100 Pre VICENTE Flow: twilson 01:35 PM Patient out of room: 13:35 twilson 01:35 PM Lesion found in Proximal Circumflex. Pre Stenosis: 20 Pre VICENTE Flow: twilson 01:36 PM Lesion found in Ramus. Pre Stenosis: 90 Pre VICENTE Flow: twilson 01:36 PM Lesion found in Proximal RCA. Pre Stenosis: 40 Pre VICENTE Flow: twilson 01:36 PM Lesion found in Mid RCA. Pre Stenosis: 40 Pre VICENTE Flow: twilson 01:36 PM Lesion found in Distal RCA. Pre Stenosis: 30 Pre VICENTE Flow: twilson Complications Complication None Hemodynamics Pressures Site Systolic/A Wave Diastolic/V Wave Mean LV 176 6 11 LV 175 5 10 LV 175 4 11 AO 173 72 115 AO 129 49 82 AO 169 77 113 AO 159 71 108 AO 168 74 112 AO 172 76 115 Post Procedure Information Rhythm: NSR Post procedural instructions were given Closure Device Time Device Success/Fail 02/25/2019 1:26:00 PM Perclose ProGlide Successful Site Checks Time Location Status Staff Sheath In? Note 01:27 PM Rt Groin No bleeding/ No Hematoma Marisol Montejo RT (R) Pulses Time Site Pre-Procedure Post-Procedure Note 02/25/2019 12:44:00 PM Bilateral DP & PT 2+ 02/25/2019 12:44:00 PM Bilateral radial 2+ 1:27:00 PM Bilateral DP & PT 2+ 1:27:00 PM Bilateral radial 2+ Updated by Nata Mota RT (R) on 02/25/2019 1:41:34 PM electronically signed on 02/25/2019 1:43:42 PM with status of Final
--- NOTE | 2019-02-25 14:14 | Event Note ---
Date of Encounter: 02/25/19 Time of Encounter: 14:15 - Cardiology Event Note Discussed and reviewed with Dr. Blanco, weaning IV nitroglycerin drip off and increasing long-acting nitrate from Imdur 30mg by mouth daily to 60 mg as by mouth daily. Cardiology signed off, reconsult as needed, follow-up arranged.
--- NOTE | 2019-02-25 15:05 | Discharge Summary ---
- NOTES TO OUTPATIENT PROVIDER Notes to Outpatient Provider: Presented with chest pain was seen by cardiology and underwent left heart catheter-cardiology recommending medical therapy no further intervention. Imdur was increased to 60 mg daily Date of Encounter: 02/25/19 Time of Encounter: 15:03 - Discharge Diagnosis (1) Unstable angina pectoris Priority: Primary Status: Acute (2) CAD (coronary artery disease) Priority: Secondary Status: Chronic Qualifiers: Coronary Disease-Associated Artery/Lesion type: bypass graft [place] vs. 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 Alexander is a 68 year old male Mr. Alexander is a 68 year old male asked medical history of CAD status post CABG, hypertension hyperlipidemia diabetes. Patient has been experiencing intermittent chest discomfort/pressure for the past few months with associated dyspnea. No nausea vomiting diaphoresis. Pain improved with sublingual nitroglycerin there are no aggravating factors. Last s ublingual nitroglycerin was approximately 3-4 days ago symptoms do occur at rest and with exertion. He has known history of CAD with a CABG in 2014 at [facility] and a redo a CABG [facility] in 2016 most recent cardiac catheterization was 2017. He was originally [facility] with the complaints of continued chest pain. He was having chest pain in the office EKG was obtained with no ST-T wave abnormalities. He was sent to the ER initial troponin was negative. He was placed on heparin and nitroglycerin he was evaluated by cardiology and underwent LHC- LVEF 45% inferior contraction abnormality. RCA mild disease LCA 100 lad and om LYNN to LAD patent. SVG/free AIXA to diag and OM patent. Cardiology recommending medical therapy Imdur will be increased to 60 mg daily-patient was weaned off nitroglycerin has been chest pain-free access site right groin with no bleeding or hematoma. He is hemodynamically stable at this time is ready for discharge. - Time Spent with Patient Total time spent providing and/or coordinating discharge services: - Discharge Medications Prescriptions: New Isosorbide MONOnitrate (24 HR) [Imdur] 60 mg PO DAILY #30 tab.er.24h Continued Simvastatin [Zocor] 40 mg PO QPM Gabapentin [Neurontin] 300 mg PO BID Insulin LISPRO [HumaLOG] 13 units SQ TIDWM Vitamin B Complex 1 cap PO QAM Ondansetron HCl [Zofran] 8 mg PO BID PRN PRN Reason: Nausea Nitroglycerin 0.4 mg SL AD PRN PRN Reason: Chest Pain Multivitamin/Iron/Folic Acid [Centrum Complete Multivit Tab] 1 tab PO QAM Metoprolol Tartrate [Lopressor] 50 mg PO BID Metformin HCl [Glucophage] 1,000 mg PO BID Hyoscyamine Sulfate 0.125 mg PO TID PRN PRN Reason: Dyspepsia Aspirin [Adult Low Dose Aspirin EC] 81 mg PO BID Albuterol Sulfate [Proair Hfa] 2 puff IH Q4-6H PRN PRN Reason: Shortness Of Breath Dulaglutide [Trulicity] 1.5 mg SQ FR Lisinopril [Zestril] 1 tab PO QPM Insulin Glargine,Hum.rec.anlog [Sherine Velasquez] 60 units SQ QAM No Action Fenofibrate [Lofibra] 160 mg PO QPM Isosorbide MONOnitrate [Isosorbide Mononitrate ER] 30 mg PO QPM Home Medications: Albuterol Sulfate [Proair Hfa] 2 puff IH Q4-6H PRN 10/04/15 [History] Aspirin [Adult Low Dose Aspirin EC] 81 mg PO BID 10/04/15 [History] Fenofibrate [Lofibra] 160 mg PO QPM 10/04/15 [History] Gabapentin [Neurontin] 300 mg PO BID 10/04/15 [History] Hyoscyamine Sulfate 0.125 mg PO TID PRN 10/04/15 [History] Insulin LISPRO [HumaLOG] 13 units SQ TIDWM 10/04/15 [History] Metformin HCl [Glucophage] 1,000 mg PO BID 10/04/15 [History] Metoprolol Tartrate [Lopressor] 50 mg PO BID 10/04/15 [History] Multivitamin/Iron/Folic Acid [Centrum Complete Multivit Tab] 1 tab PO QAM 10/04/15 [History] Nitroglycerin 0.4 mg SL AD PRN 10/04/15 [History] Ondansetron HCl [Zofran] 8 mg PO BID PRN 10/04/15 [History] Simvastatin [Zocor] 40 mg PO QPM 10/04/15 [History] Vitamin B Complex 1 cap PO QAM 10/04/15 [History] Dulaglutide [Trulicity] 1.5 mg SQ FR 04/08/17 [History] Insulin Glargine,Hum.rec.anlog [Toujeo Solostar] 60 units SQ QAM 02/24/19 [History] Isosorbide MONOnitrate [Isosorbide Mononitrate ER] 30 mg PO QPM 02/24/19 [History] Lisinopril [Zestril] 1 tab PO QPM 02/24/19 [History] Isosorbide MONOnitrate (24 HR) [Imdur] 60 mg PO DAILY #30 tab.er.24h 02/25/19 [Rx] Allergies/Adverse Reactions: Allergy/AdvReac Type Severity Reaction Status Date / Time No Known Allergies Allergy Verified 07/29/18 15:07 Date of admission: 02/24/19 18:49 Primary care physician: Anais Almonte Consults: 02/24/19 16:55 Consult to Cardiology [CONS] Stat Comment: Consulting Provider: Radu Callejas Reason for Consult: chest pain, <1mm ST elevations in II, III, aVF, V2 Time Notified: 17:08 Call Completed: Yes 02/25/19 12:01 Consult to Cardiac Rehabilitation-Phase1 [CONS] Routine Comment: Reason for Consult: CAD/CABG, [place], cath pending Call Completed: No Discharging clinician: Rubi Kingston Anticipated date of discharge: 02/25/19 - Constitutional Vitals: Temp Pulse Resp BP Pulse Ox 98.2 F 78 16 133/82 96 02/25/19 06:28 02/25/19 14:41 02/25/19 06:28 02/25/19 14:41 02/25/19 14:41 General appearance: Present: A&O X 3 Exam: Skin: Free of rash and discoloration. Eyes: Sclera is white. There is no discharge from eyes. ENMT: Oral/pharyngeal mucosa is normal in appearance. There is no discharge from nose or ears. Respiratory: Normal breath sounds with no crackles and wheezes bilaterally. CV: Heart is regular with no gallop or murmur. GI: Abdomen is flat and soft with no palpable mass or visceromegaly. : There is no tenderness in patient's flanks bilaterally. Neuro exam: He has good strength in upper and lower extremities. He has normal eye movements. Psychiatric: He has normal affect. His thought process is appropriate to the situation. - Patient Status Disposition: Home, Self-Care Condition: Good Functional capacity at discharge: independent ambulation Overall status at discharge: patient is back to baseline - Discharge Instructions Instructions: Chest Pain (DC) Follow Up With: Marla Lopes DO [Primary Care Provider] - Forms: ED Satisfaction Letter - Diet and Activity Activity: increase activity as tolerated Diet: low fat, low cholesterol, low salt diet
[2019-02-25] MEDS ORDERED: Isosorbide MONOnitrate (24 HR) 60 MG TAB.ER.24H PO SCH (15:45)
[2019-02-25 18:01] VITALS: BP 107/65
--- NOTE | 2019-02-28 00:03 | Electrocardiograph Report ---
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
== END 2019-02-25 18:00 | disposition home or self-care (01) ==
LOC: 3BNU 15:34 → EMEROOARM 15:34 → 3BNU 20:11
PROVIDERS: ADMIT Internal Medicine; ATTEND Internal Medicine